=== PATIENT | male | born 1945 | race Caucasian/White ===

== ENCOUNTER 2017-06-17 16:04 | Inpatient (IN) | payer MEDICARE, OTHER ==
[2017-06-17 16:48] LABS: #Basophils 0.1 thou/uL (0.0-0.2); #Lymphocytes 2.9 thou/uL (1.20-3.40); #Monocytes 1.4 thou/uL (0.11-0.59); #Neutrophils 11.5 thou/uL (1.40-6.50); %Basophils 0.4 % (0.0-1.0); %Eosinophils 0.2 % (0.0-10.0); %Lymphocytes 18.3 % (21.0-51.0); %Monocytes 8.8 % (0.0-10.0); Hematocrit 32.9 % (42.0-52.0); Mean Platelet Volume 8.6 fL (7.4-10.4); Red Blood Cell (RBC) Count 3.78 mill/uL (4.70-6.10); White Blood Cell (WBC) Count 15.9 thou/uL (4.8-10.8)
[2017-06-17 17:02] LABS: Anisocytosis SLIGHT = 6-15 cells (100X) (0-5/hpf); Hypochromia SLIGHT = 6-15 cells (100X) (0-5/hpf); Neutrophil 71 % (42-75); Polychromasia SLIGHT = 2-3 cells (100X) (0-2/hpf); Reactive Lymphocytes 7 % (0-10)
[2017-06-17] MEDS ORDERED: Pantoprazole 40 MG VIAL ONE ×2 (18:40→19:33)
[2017-06-17] MEDS ORDERED: Pantoprazole 80 MG, Admixture Fee 1 EACH in Sodium Chloride 0.9% 100 ML IVP SCH (19:00)
[2017-06-17] MEDS ORDERED: Ondansetron ODT 4 MG TAB SL PRN (20:08)
[2017-06-17] MEDS ORDERED: Ondansetron HCl/PF 4 MG/2 ML Vial IVP PRN ×3 (20:08→21:11)
[2017-06-17] MEDS ORDERED: Sodium Chloride 0.9% 1,000 ML IV SCH (20:08)
[2017-06-17] MEDS ORDERED: Lorazepam 2 MG/ML VIAL SLOW IVP PRN (21:11)
[2017-06-17] MEDS ORDERED: Benzonatate 100 MG CAP PO PRN (21:11)
[2017-06-17] MEDS ORDERED: Pantoprazole 80 MG in Sodium Chloride 0.9% 100 ML IVP SCH (21:11)
[2017-06-17] MEDS ORDERED: hydrALAZINE 20 MG/ML VIAL SLOW IVP PRN (21:11)
[2017-06-17] MEDS ORDERED: Calcium Carbonate 500 MG ChewTAB PO PRN (21:11)
[2017-06-17] MEDS ORDERED: Bisacodyl 5 MG TAB PO PRN (21:11)
[2017-06-17] MEDS ORDERED: Nitroglycerin 0.4 MG TAB (25 Tab Bottle) SL PRN (21:11)
[2017-06-17] MEDS ORDERED: Mag-Al 1200 mg/1200 mg/30 ML UDCUP PO PRN (21:11)
[2017-06-17] MEDS ORDERED: Acetaminophen 325 MG TAB PO PRN (21:11)
[2017-06-17] MEDS ORDERED: Senokot 8.6 MG TAB PO PRN (21:11)
[2017-06-17] MEDS ORDERED: Loratadine 10 MG TAB PO PRN (21:11)
[2017-06-17] MEDS ORDERED: traMADol HCl 50 MG TAB PO PRN (21:11)
[2017-06-17] MEDS ORDERED: Diabetic Tussin 200 MG/10 ML UDCUP PO PRN (21:11)
[2017-06-17] MEDS: Sodium Chloride 0.9% 1,000 ML IV SCH (21:21)
[2017-06-17 21:34] LABS: Hematocrit 28.9 % (42.0-52.0)
--- NOTE | 2017-06-18 00:19 | HP ---
DATE OF ADMISSION: 06/17/2017 PRIMARY CARE PHYSICIAN: Tawanna Desai D.O. CHIEF COMPLAINT: Vomiting blood. HISTORY OF PRESENT ILLNESS: Mr. Real is a very pleasant 71-year-old male with past medical histor y of rheumatoid arthritis, tobacco abuse, hypertension, peripheral arterial disease, status post sten ting, and high cholesterol, who presented to the emergency room with the above-mentioned complaint. History is mainly obtained from the patient himself and the case has been discussed with the emergenc y room physician, Dr. Rolle. According to Mr. Real, he has been feeling poorly for the last month or so. Mr. Real reports t hat he has had a bout of diarrhea about 1 month ago. He went to his primary care physician and was d iagnosed with Salmonella for which he received antibiotics. But since then, he has been feeling poor ly. He regularly takes BC powder for the last 60 years for his aches and pains once or twice a day. He is also on Plavix for his peripheral arterial disease. He was also started on steroids a few yea rs ago for his rheumatoid arthritis. He reported that he has been losing weight and has poor appetit e in the last month or so. His diarrhea has somewhat improved; however, last night, he was feeling r eally bad, nauseous and dizzy. He had pain in his chest, which felt like indigestion. He ruled out the night, but this morning, when he got up, he was really dizzy and he sat down as he was afraid he was about to pass out. He then had a significant amount of bright red blood vomiting and was brought to the [facility] by his sister. In the emergency room, his hemoglobin at 12:00 p.m. wa s 11, and a repeat H&H done at 3:00 p.m., his hemoglobin was 9.9. He was hemodynamically stable. He was transferred here for further evaluation. Repeat hemoglobin in our emergency room is 10.3. He i s currently stable and feeling better. He has received proton pump inhibitor IV in the emergency [facility] and is now being admitted for further evaluation. ER physician has discussed the case with the on- call boat loader helper, Dr. Hyatt. The patient will undergo EGD possibly tomorrow. He is to remain n.p.o. for now as per GI instructions. PAST MEDICAL HISTORY: 1. Rheumatoid arthritis. 2. High cholesterol. 3. Hypertension. 4. Remote history of hepatitis 40 years ago. 6. Peripheral arterial disease, status post stent placement in the leg. PAST SURGICAL HISTORY: Stent in the legs. ALLERGIES: No known medication allergies. HOME MEDICATIONS: 1. Sulfasalazine. 2. Omeprazole. 3. Ferrous sulfate. 4. Tramadol as needed. 5. Prednisone 5 mg daily. 6. Duloxetine. 7. Atorvastatin. 8. Plavix 75 mg daily. 9. Risedronate 35 mg once a week. All these medication dosages further need to be confirmed. SOCIAL HISTORY: [place] He smokes 1-1/2 pack of cigarettes per day. Denies any alcohol or drug abuse. FAMILY HISTORY: He denies any coronary artery disease or stroke running in his family. Both of his parents lived to be in their 90s. No history of diabetes, hypertension or cancer in his family. REVIEW OF SYSTEMS: The following complete review of systems was negative except for those mentioned in the history and physical. Constitutional: Weight loss or gain, ability to conduct usual activities. Skin: Rash, itching. Eyes: Double vision, pain. ENT/Mouth: Nose bleeding, neck stiffness, pain, tenderness. Cardiovascular: Palpitations, dyspnea on exertion, orthopnea. Respiratory: Shortness of breath, wheezing, cough, hemoptysis, fever or night sweats. Gastrointestinal: Poor appetite, abdominal pain, heartburn, nausea, vomiting, constipation, or diarr hea. Genitourinary: Urgency, frequency, dysuria, nocturia. Musculoskeletal: Pain, swelling. Neurologic/Psychiatric: Anxiety, depression. Allergy/Immunologic: Skin rash, bleeding tendency. LABORATORY DATA: His reported serum chemistries are unremarkable from [facility]. His CBC rep eated here shows WBCs at 15.9 with normal neutrophil count at 71%, hemoglobin is 10.3, platelet count of 330. A 12-lead EKG by my review shows sinus tachycardia with complete right bundle branch block. PHYSICAL EXAMINATION: VITAL SIGNS: Upon presentation, blood pressure 132/80, pulse of 91, saturating 96% on room air, resp irations 18, temperature 99.5. GENERAL EXAMINATION: In no acute distress, awake, alert, oriented x3. He appears malnourished and c achectic. HEENT EXAMINATION: Mucous membrane is slightly dry. No oropharyngeal exudate or erythema. Head is normocephalic, atraumatic. Pupils equal, reactive to light and accommodation. Extraocular movement intact. NECK: Supple without any lymphadenopathy, JVD or bruit. CHEST: Clear to auscultation without any wheezing, rales or rhonchi. CARDIOVASCULAR: Rate and rhythm is regular without any murmur, rubs or gallops. ABDOMEN: Soft, nontender, and nondistended with positive bowel sounds. He does not have any guardin g, rebound or rigidity. EXTREMITIES: Free of any cyanosis, clubbing, or edema. NEUROLOGICAL EXAMINATION: Nonfocal. SKIN: Free of any rashes or bruises. Feels warm and dry to touch. PSYCHIATRIC: Normal affect. IMPRESSION AND PLAN: 1. Upper gastrointestinal bleed. This is likely secondary to the use of multiple antiplatelet medic ations including the BC powder as well as Plavix and steroids for chronic use. At this time, he will be kept n.p.o., and we will start him on Protonix drip. He will be gently rehydrated and we will ch tobin H&H every . 2. Acute blood loss anemia. We will monitor his H&H closely and avoid any pharmacological deep veno us thrombosis prophylaxis. Hold all NSAIDs at this time. Hold oral steroids. He will be n.p.o. as above. 3. History of hypertension. We will use p.r.n. antihypertensives and hold his home medications for now. 4. History of rheumatoid arthritis. The patient has been instructed to get off the BC powder. 5. History of hepatitis, unknown status. We will send chronic hepatitis panel. 6. Tobacco abuse. We will provide him with a nicotine patch while he is here. 7. Gastrointestinal prophylaxis and deep venous thrombosis prophylaxis as above. 8. Code status: FULL CODE. Discussed with the patient. DISPOSITION: The patient is currently being admitted for active GI bleed. Estimated length of stay is at least 2-3 midnights.
[2017-06-18 01:34] LABS: Hematocrit 26.8 % (42.0-52.0)
[2017-06-18 05:41] LABS: Hematocrit 28.2 % (42.0-52.0); Neutrophil 67 % (42-75); Reactive Lymphocytes 3 % (0-10); Red Blood Cell (RBC) Count 3.22 mill/uL (4.70-6.10); White Blood Cell (WBC) Count 11.5 thou/uL (4.8-10.8)
[2017-06-18 05:52] LABS: Anion Gap 11 mmol/L (10-20); BUN (Urea Nitrogen) 43 mg/dL (8.4-25.7); Calc. Creatinine Clearance 73 mL/min (70-130); Calcium 8.2 mg/dL (7.8-10.44); Carbon Dioxide 21 mmol/L (23-31); Chloride 115 mmol/L (98-107); Estimated GFR-MDRD Greater than 90
--- NOTE | 2017-06-18 08:47 | PDOC.PN ---
- Subjective Encounter Start Date: 06/18/17 Encounter Start Time: 08:45 Subjective: seen post EGD. feels better. no more hemetemesis. -: no BRB -[place]/melena/AP - Objective MAR Reviewed: Yes Vital Signs & Weight: Vital Signs (12 hours) Temp Pulse Resp BP Pulse Ox 06/18/17 08:05 99.1 F 86 18 107/63 94 L 06/18/17 03:59 98.7 F 76 20 132/66 97 06/18/17 00:00 98.3 F 90 20 126/61 98 06/17/17 21:11 98.3 F 90 20 119/64 98 Weight Weight 137 lb 14.4 oz Result Diagrams: 06/18/17 04:02 06/18/17 04:02 Additional Labs: Laboratory Tests 06/17/17 06/17/17 06/18/17 16:37 21:23 01:18 WBC 15.9 H Hgb 10.3 L 9.2 L 8.6 L 06/18/17 04:02 WBC 11.5 H Hgb 8.9 L Radiology Reviewed by me: Yes Phys Exam - Physical Examination Constitutional: NAD malnourished appearing HEENT: PERRLA, moist MMs, sclera anicteric, oral pharynx no lesions Neck: no nodes, no JVD, supple, full ROM Respiratory: no wheezing, no rales, no rhonchi, clear to auscultation bilateral Cardiovascular: RRR, no significant murmur Gastrointestinal: soft, non-tender, no distention, positive bowel sounds Musculoskeletal: no edema, pulses present Neurological: non-focal, normal sensation, moves all 4 limbs Psychiatric: normal affect, A&O x 3 Skin: no rash Dx/Plan (1) Upper GI bleed Code(s): K92.2 - GASTROINTESTINAL HEMORRHAGE, UNSPECIFIED Status: Acute (2) Acute blood loss anemia Code(s): D62 - ACUTE POSTHEMORRHAGIC ANEMIA Status: Acute (3) Rheumatoid arthritis Code(s): M06.9 - RHEUMATOID ARTHRITIS, UNSPECIFIED Status: Acute (4) PAD (peripheral artery disease) Code(s): I73.9 - PERIPHERAL VASCULAR DISEASE, UNSPECIFIED Status: Acute (5) Essential (primary) hypertension Code(s): I10 - ESSENTIAL (PRIMARY) HYPERTENSION Status: Acute (6) Tobacco abuse Code(s): Z72.0 - TOBACCO USE Status: Acute (7) Malnourished Code(s): E46 - UNSPECIFIED PROTEIN-CALORIE MALNUTRITION Status: Chronic Qualifiers: Malnutrition type: protein-calorie malnutrition Protein-calorie malnutrition severity: severe Qualified Code(s): E43 - Unspecified severe protein-calorie malnutrition - Plan plan discussed w/ family, out of bed/ambulate, DVT proph w/SCDs EGD showed erosive gastritis & shallow ulcers.cont PPI BID -: BRIGITTE BC Pwd,Prednisone,risedronate. -: humberto BRIGGS home in am, if feels better. -: nicotine patch. -: care discussed w sister.Will Add PT/Ot for possible HH * . Review of Systems - Review of Systems Constitutional: Weakness, Malaise. negative: Fever, Chills, Sweats, Other Respiratory: negative: Cough, Dry, Shortness of Breath, Hemoptysis, SOB with Excertion, Pleuritic Pain, Sputum, Wheezing Cardiovascular: negative: Chest Pain, Palpitations, Orthopnea, Paroxysmal Noc. Dyspnea, Edema, Light Headedness, Other Gastrointestinal: negative: Nausea, Vomiting, Abdominal Pain, Diarrhea, Constipation, Melena, Hematochezia, Other Genitourinary: negative: Dysuria, Frequency, Incontinence, Hematuria, Retention , Other Musculoskeletal: negative: Neck Pain, Shoulder Pain, Arm Pain, Back Pain, Hand Pain, Leg Pain, Foot Pain, Other Neurological: negative: Weakness, Numbness, Incoordination, Change in Speech, Confusion, Seizures, Other - Medications/Allergies Allergies/Adverse Reactions: Allergies Allergy/AdvReac Type Severity Reaction Status Date / Time No Known Drug Allergies Allergy Verified 06/18/17 01:10 Medications: Current Medications Acetaminophen (Tylenol) 650 mg PO Q4H PRN PRN Reason: Headache/Fever or Pain Al Hydroxide/Mg Hydroxide (Maalox) 30 ml PO Q6H PRN PRN Reason: Heartburn or Indigestion Albuterol/Ipratropium (Duoneb) 3 ml NEB Q6H PRN PRN Reason: SOB &/or Wheezing Benzonatate (Tessalon) 100 mg PO Q4H PRN PRN Reason: Cough Bisacodyl (Dulcolax) 10 mg PO DAILYPRN PRN PRN Reason: Constipation Calcium Carbonate (Tums) 1,000 mg PO Q4H PRN PRN Reason: Heartburn or Indigestion Guaifenesin (Robitussin Sf) 200 mg PO Q4H PRN PRN Reason: Cough Hydralazine HCl (Apresoline) 10 mg SLOW IVP Q4H PRN PRN Reason: Systolic BP > 170 Sodium Chloride (Normal Saline 0.9%) 1,000 mls @ 50 mls/hr IV .Q20H [facility] Last Admin: 06/17/17 21:21 Dose: 1,000 mls Pantoprazole Sodium 80 mg/ (Sodium Chloride) 100 mls @ 10 mls/hr IVP INF [facility] Last Admin: 06/18/17 03:49 Dose: 100 mls Influenza Virus Vaccine (Fluzone High-Dose Syr) 0.5 ml IM .ONCE ONE Stop: 06/18/17 09:01 Loratadine (Claritin) 10 mg PO DAILYPRN PRN PRN Reason: Sinus Symptoms Lorazepam (Ativan) 1 mg SLOW IVP Q4H PRN PRN Reason: Anxiety/Agitation Nitroglycerin (Nitrostat) 0.4 mg SL Q5MIN PRN PRN Reason: Chest Pain Ondansetron HCl (Zofran) 4 mg IVP Q6H PRN PRN Reason: Nausea/Vomiting Senna (Senokot) 2 tab PO HSPRN PRN PRN Reason: Constipation Tramadol HCl (Ultram) 50 mg PO Q4H PRN PRN Reason: Moderate Pain (4-6)
--- NOTE | 2017-06-18 08:48 | CON ---
DATE OF CONSULTATION: 06/18/2017 REASON FOR CONSULTATION: Hematemesis. HISTORY OF PRESENT ILLNESS: Maxim Real is a very pleasant 71-year-old man with rheumatoid arthri tis and peripheral vascular disease with a stent placed to the lower extremity about 3 years ago. He has been on aspirin and Plavix. He takes BC powder most every day for a long time and was recently started on prednisone 5 mg daily, all for his rheumatoid arthritis. Note, he also takes risedronate. He says for about the past month he has been feeling overall poorly just with generalized loss of a ppetite and a bit of weight loss. He has had some looser stools as well. Over the past couple of da ys he has been feeling very dizzy and then yesterday he had a presyncopal episode associated with bur jan discomfort in the mid chest. When he woke up from that he had a single episode of bright red bl ood emesis. This was about a pint in his estimation. This was alarming to him and prompted his pres entation in the ER, initial hemoglobin was 11, but it dropped to 9.9 and this morning dropped further to 8.9. There has been no further hematemesis and no melena or hematochezia. His discomfort and hi s dizziness has significantly improved. He was put on a Protonix drip. He has no history of liver d isease. He has no history of gastrointestinal illness. He has never undergone endoscopy. He has re mained hemodynamically stable. REVIEW OF SYSTEMS: Full review of systems including constitutional, head, eyes, ears, nose, throat, GI, , cardiovascular, respiratory, musculoskeletal, and neurologic systems is negative except as no uziel in HPI. PAST MEDICAL HISTORY: Tobacco abuse, rheumatoid arthritis, hypertension, hyperlipidemia, peripheral arterial disease with stent to the lower extremity about 3 years ago. ALLERGIES: No known drug allergies. OUTPATIENT MEDICATIONS: Aspirin, Plavix, BC powder, omeprazole, sulfasalazine, prednisone, duloxetin e, Lipitor, risedronate. FAMILY HISTORY: Negative for malignancy. SOCIAL HISTORY: He smokes about 1.5 packs of cigarettes per day. No alcohol or drug use. PHYSICAL EXAMINATION: VITAL SIGNS: Temperature 98.7, pulse 76, blood pressure 132/66, 97% oxygen saturation on room air. GENERAL: Elderly 71-year-old man lying in bed comfortably in no distress. SKIN: No jaundice, no rash visible or palpable. He has an abrasion to his left arm. EYES: No scleral icterus. Extraocular movements intact. ENT: Mucous membranes moist, no oral lesions. LYMPH: No submandibular, supraclavicular lymphadenopathy. THYROID: Nontender to palpation. HEART: Regular rate and rhythm. LUNGS: Clear to auscultation bilaterally. ABDOMEN: Bowel sounds present, soft, nontender to palpation throughout. EXTREMITIES: No peripheral edema. VESSELS: Radial pulses 2+ bilaterally. NEUROLOGICAL: Cranial nerves II-XII intact bilaterally. No focal deficits. LABORATORY STUDIES: WBC 11.5, hemoglobin down to 8.9 from 11.0 on admission, platelets 256. Sodium 144, potassium 3.3, BUN elevated at 43, creatinine 0.81. ASSESSMENT AND PLAN: 1. Hematemesis, single episode yesterday. 2. Acute blood loss anemia. 3. Rheumatoid arthritis, taking BC powder chronically and recently started on prednisone. The patient's presentation is consistent with acute upper gastrointestinal bleeding. This does seem to be stable given his hemodynamic stability and no recurrence of hematemesis. Continue with Protoni x drip. We will plan for EGD later today for further investigation. Further recommendations followi ng endoscopy.
[2017-06-18] MEDS ORDERED: FLU VACC TS2017-18 (>65YR) 0.5 ML SYRINGE IM ONE (09:00)
[2017-06-18] MEDS: Nicotine 14 MG PATCH TD SCH (09:13)
[2017-06-18] MEDS ORDERED: Promethazine HCl 25 MG/ML VIAL IM PRN (12:05)
[2017-06-18] MEDS ORDERED: Ondansetron HCl/PF 4 MG/2 ML Vial IVP PRN (12:05)
[2017-06-18] MEDS ORDERED: Promethazine HCl 25 MG/ML VIAL SLOW IVP PRN (12:05)
[2017-06-18] MEDS ORDERED: Fentanyl 100 MCG/2 ML VIAL ONE (12:22)
--- NOTE | 2017-06-18 12:25 | OP ---
DATE OF PROCEDURE: 06/18/2017 SURGEON: Jose Hyatt M.D. ADVERTISING TRAFFIC MANAGER SURGEON: None. PROCEDURE: Esophagogastroduodenoscopy. INDICATION: Hematemesis and acute blood loss anemia. MEDICATIONS: See anesthesia record. FINDINGS: After discussion of the risks, benefits and alternatives of the procedure, informed consen t was obtained and witnessed. Pre-endoscopic cardiopulmonary examination was satisfactory. Timeout was performed before sedation was achieved. Sedation was achieved with anesthesia assistance in the endoscopy unit. A Pentax adult upper endoscope was placed into the oropharynx and passed through the cricopharyngeus under direct visualization. The proximal and mid esophageal mucosa appeared normal. In the distal esophagus from 35 cm to 41 cm there was salmon-colored mucosa consistent with probabl e Aguilar's esophagus. There is some friability to this area and there is also a single shallow rich n based small ulceration in the distal esophagus. This could be consistent with pill esophagitis. T he ulcer is nonbleeding and not very deep. The endoscope was advanced forward into the stomach. For champagne and retroflexed views of the entire gastric mucosa were obtained. The gastric mucosa overall ap peared normal. No erosions or ulcerations. However, there were a few tiny arteriovenous malformatio ns in the gastric body and gastric antrum. These are nonbleeding. No therapy was applied. The endo scope was advanced through the pylorus and into the first and second portions of the duodenum. At th e apex of the duodenal bulb, there is shallow, but near circumferential ulceration with some associat ed low grade stricture. There is no bleeding from this area. It was friable and there was some oozi ng induced with endoscope passage beyond this area; however, there were no high risk stigmata for sig nificant rebleeding from this area. No biopsies were obtained on this examination. The upper endosc ope was completely withdrawn and the patient allowed to recover. The patient tolerated the procedure well. There were no immediate post-procedure complications. IMPRESSION: 1. Distal erosive esophagitis with a single shallow ulcer in the distal esophagus, possibly consiste nt with pill esophagitis. 2. Wells-colored mucosa in the distal esophagus from 35-41 cm. 3. A few tiny nonbleeding gastric arteriovenous malformations. 4. Shallow, but near circumferential ulcer at the apex of the duodenal bulb, with associated low gra de stricture, nonbleeding. 5. No old blood or active bleeding on this examination. RECOMMENDATIONS: 1. Advance diet. 2. Twice daily oral proton pump inhibitor for at least the next 2 months. 3. I would recommend that the patient stop prednisone, stop the risedronate (due to risk of pill eso phagitis with this medication in particular), stop his BC powder and all other nonsteroidal anti-infl ammatory drugs. 4. Check H. pylori serology. If positive, treat with triple therapy and confirm eradication. 5. I would also recommend holding Plavix for now, if this is okay from a vascular perspective. If t he Plavix is necessary, then go ahead and administer, with more close outpatient lab monitoring. 6. We will have him follow up in the GI Clinic in 3-4 weeks. At that point, we will likely schedule repeat EGD several weeks down the line to assess for healing. Please call back if needed.
[2017-06-18] MEDS ORDERED: Succinylcholine Chloride 20 MG/ML 10 ml SYRINGE FS ONE (14:04)
[2017-06-18] MEDS ORDERED: Esmolol 100 MG/10 ML VIAL ONE (14:04)
[2017-06-18] MEDS ORDERED: Lidocaine 1% PF 5 ML VIAL ONE (14:04)
[2017-06-18] MEDS ORDERED: Propofol 200 MG/20 ML VIAL ONE (14:04)
[2017-06-18 15:20] LABS: Bilirubin Negative (Negative); Blood, Urine Negative (Negative); Glucose, Urine (Dipstick) Negative (Negative); Ketone, Urine 15 mg/dL (Negative); Nitrite Negative (Negative); Protein, Urine (Dipstick) Negative (Neg-Trace); Urobilinogen 0.2 mg/dL (0.2-1.0)
[2017-06-18] MEDS: Sodium Chloride 0.9% 1,000 ML IV SCH (18:47)
[2017-06-19 06:20] LABS: Anion Gap 7 mmol/L (10-20); BUN (Urea Nitrogen) 26 mg/dL (8.4-25.7); Calc. Creatinine Clearance 77 mL/min (70-130); Calcium 8.1 mg/dL (7.8-10.44); Carbon Dioxide 23 mmol/L (23-31); Chloride 114 mmol/L (98-107); Estimated GFR-MDRD Greater than 90
[2017-06-19 06:26] LABS: #Basophils 0.1 thou/uL (0.0-0.2); #Eosinphils 0.2 thou/uL (0.0-0.7); #Lymphocytes 2.3 thou/uL (1.20-3.40); #Monocytes 1.3 thou/uL (0.11-0.59); %Basophils 0.6 % (0.0-1.0); %Eosinophils 1.4 % (0.0-10.0); %Lymphocytes 21.2 % (21.0-51.0); %Monocytes 11.8 % (0.0-10.0); Hematocrit 26.2 % (42.0-52.0); Hypochromia SLIGHT = 6-15 cells (100X) (0-5/hpf); Red Blood Cell (RBC) Count 2.97 mill/uL (4.70-6.10); White Blood Cell (WBC) Count 10.8 thou/uL (4.8-10.8)
[2017-06-19] MEDS ORDERED: Potassium Chloride 40 MEQ in Premix Bag 1 BAG IVPB SCH (07:15)
[2017-06-19] MEDS ORDERED: Potassium Chloride 40 MEQ, Admixture Fee 1 EACH in Sodium Chloride 0.9% 250 ML 250 ML IVPB SCH (07:30)
[2017-06-19] MEDS ORDERED: Potassium Chloride 20 MEQ TAB PO SCH (08:00)
[2017-06-19] MEDS: Nicotine 14 MG PATCH TD SCH (08:39)
[2017-06-19] MEDS ORDERED: Ferrous Sulfate 325 MG TAB PO PRN (09:00)
--- NOTE | 2017-06-19 09:47 | PDOC.PN ---
- Subjective Encounter Start Date: 06/19/17 Encounter Start Time: 09:45 Subjective: no new complaints. no overnight events. -: reports that he ate all of his breakfast this morning. -: no nausea/vomiting.passing black colored liquid stools - Objective MAR Reviewed: Yes Vital Signs & Weight: Vital Signs (12 hours) Temp Pulse Resp BP Pulse Ox 06/19/17 07:49 98.6 F 70 18 116/62 96 06/19/17 05:08 99.3 F 84 20 100/55 L 97 06/19/17 00:00 98.4 F 71 20 127/60 97 Weight Weight 135 lb 12.8 oz I&O: 06/18/17 06/19/17 06/20/17 06:59 06:59 06:59 Intake Total 1700 Output Total 1300 Balance 400 Result Diagrams: 06/19/17 04:56 06/19/17 04:56 Additional Labs: Microbiology 06/18/17 17:47 Stool - Liquid C. difficile GDH Antigen & Toxins - Final Laboratory Tests 06/17/17 06/17/17 06/18/17 16:37 21:23 01:18 Hgb 10.3 L 9.2 L 8.6 L 06/18/17 06/19/17 04:02 04:56 Hgb 8.9 L 8.2 L Phys Exam - Physical Examination Constitutional: NAD cachectic HEENT: PERRLA, moist MMs, sclera anicteric, oral pharynx no lesions Neck: no nodes, no JVD, supple, full ROM Respiratory: no wheezing, no rales, no rhonchi, clear to auscultation bilateral Cardiovascular: RRR, no significant murmur Gastrointestinal: soft, non-tender, no distention, positive bowel sounds Musculoskeletal: no edema, pulses present Neurological: non-focal, normal sensation, moves all 4 limbs Psychiatric: normal affect, A&O x 3 Skin: no rash Dx/Plan (1) Upper GI bleed Code(s): K92.2 - GASTROINTESTINAL HEMORRHAGE, UNSPECIFIED Status: Acute (2) Acute blood loss anemia Code(s): D62 - ACUTE POSTHEMORRHAGIC ANEMIA Status: Acute (3) Rheumatoid arthritis Code(s): M06.9 - RHEUMATOID ARTHRITIS, UNSPECIFIED Status: Acute (4) PAD (peripheral artery disease) Code(s): I73.9 - PERIPHERAL VASCULAR DISEASE, UNSPECIFIED Status: Acute (5) Essential (primary) hypertension Code(s): I10 - ESSENTIAL (PRIMARY) HYPERTENSION Status: Acute (6) Tobacco abuse Code(s): Z72.0 - TOBACCO USE Status: Acute (7) Malnourished Code(s): E46 - UNSPECIFIED PROTEIN-CALORIE MALNUTRITION Status: Chronic Qualifiers: Malnutrition type: protein-calorie malnutrition Protein-calorie malnutrition severity: severe Qualified Code(s): E43 - Unspecified severe protein-calorie malnutrition (8) Hypokalemia Code(s): E87.6 - HYPOKALEMIA Status: Acute - Plan DVT proph w/SCDs replace potassium.add pedialyte as no IV access. -: H/h stable. no active bleed.melana demonstrates old blood. -: C.diff is negative. -: awaiting PT/OT eval & HH set up.DC home when done -: hemodynamically stable * . Review of Systems - Review of Systems Constitutional: Malaise. negative: Fever, Chills, Sweats, Weakness, Other ENT: negative: Ear Pain, Ear Discharge, Nose Pain, Nose Discharge, Nose Congestion, Mouth Pain, Mouth Swelling, Throat Pain, Throat Swelling, Other Respiratory: negative: Cough, Dry, Shortness of Breath, Hemoptysis, SOB with Excertion, Pleuritic Pain, Sputum, Wheezing Cardiovascular: negative: Chest Pain, Palpitations, Orthopnea, Paroxysmal Noc. Dyspnea, Edema, Light Headedness, Other Gastrointestinal: Diarrhea. negative: Nausea, Vomiting, Abdominal Pain, Constipation, Melena, Hematochezia, Other Genitourinary: negative: Dysuria, Frequency, Incontinence, Hematuria, Retention , Other Musculoskeletal: negative: Neck Pain, Shoulder Pain, Arm Pain, Back Pain, Hand Pain, Leg Pain, Foot Pain, Other Neurological: negative: Weakness, Numbness, Incoordination, Change in Speech, Confusion, Seizures, Other - Medications/Allergies Allergies/Adverse Reactions: Allergies Allergy/AdvReac Type Severity Reaction Status Date / Time No Known Drug Allergies Allergy Verified 06/18/17 01:10 Medications: Current Medications Acetaminophen (Tylenol) 650 mg PO Q4H PRN PRN Reason: Headache/Fever or Pain Al Hydroxide/Mg Hydroxide (Maalox) 30 ml PO Q6H PRN PRN Reason: Heartburn or Indigestion Albuterol/Ipratropium (Duoneb) 3 ml NEB Q6H PRN PRN Reason: SOB &/or Wheezing Benzonatate (Tessalon) 100 mg PO Q4H PRN PRN Reason: Cough Bisacodyl (Dulcolax) 10 mg PO DAILYPRN PRN PRN Reason: Constipation Calcium Carbonate (Tums) 1,000 mg PO Q4H PRN PRN Reason: Heartburn or Indigestion Duloxetine HCl (Cymbalta) 60 mg PO DAILY [facility] Last Admin: 06/19/17 08:34 Dose: 60 mg Ferrous Sulfate (Feosol) 325 mg PO DAILY PRN PRN Reason: Acne Guaifenesin (Robitussin Sf) 200 mg PO Q4H PRN PRN Reason: Cough Hydralazine HCl (Apresoline) 10 mg SLOW IVP Q4H PRN PRN Reason: Systolic BP > 170 Loratadine (Claritin) 10 mg PO DAILYPRN PRN PRN Reason: Sinus Symptoms Lorazepam (Ativan) 1 mg SLOW IVP Q4H PRN PRN Reason: Anxiety/Agitation Nicotine (Nicoderm Patch) 14 mg TD DAILY [facility] Last Admin: 06/19/17 08:39 Dose: 14 mg Nitroglycerin (Nitrostat) 0.4 mg SL Q5MIN PRN PRN Reason: Chest Pain Ondansetron HCl (Zofran) 4 mg IVP Q6H PRN PRN Reason: Nausea/Vomiting Pantoprazole Sodium (Protonix) 40 mg PO BID [facility] Last Admin: 06/19/17 08:35 Dose: 40 mg Senna (Senokot) 2 tab PO HSPRN PRN PRN Reason: Constipation Sodium Chloride (Flush - Normal Saline) 10 ml IVF Q12HR [facility] Last Admin: 06/19/17 08:35 Dose: Not Given Sodium Chloride (Flush - Normal Saline) 10 ml IVF PRN PRN PRN Reason: Saline Flush Tramadol HCl (Ultram) 50 mg PO Q4H PRN PRN Reason: Moderate Pain (4-6)
[2017-06-19 13:31] VITALS: BMI 19.5
[2017-06-19 14:30] VITALS: BP 120/60; TEMP 98
--- NOTE | 2017-06-19 18:56 | DIS ---
DATE OF ADMISSION: 06/17/2017 DATE OF DISCHARGE: 06/19/2017 CONDITION AT THE TIME OF DISCHARGE: Stable and improved. DISCHARGE DIAGNOSES: 1. Upper gastrointestinal bleed. 2. Acute blood loss anemia. 3. Distal erosive esophagitis with peptic ulcers in the distal esophagus, possibly consistent with P ill esophagitis. He also was found to have a duodenal bulb circumferential ulcer at the apex. 4. History of rheumatoid arthritis. 5. History of peripheral arterial disease status post stenting. 6. Hypertension. 7. Tobacco abuse. 8. Malnourishment. DISCHARGE MEDICATIONS: Sulfadiazine 500 mg p.o. b.i.d., omeprazole 20 mg p.o. b.i.d., ferrous sulfat e 325 mg daily, tramadol as needed, Cymbalta 60 mg daily, atorvastatin 20 mg daily, and nicotine patc h 14 mg daily. He is instructed to stop his prednisone, his risedronate and his Plavix for now. PRIMARY CARE PHYSICIAN: Now the patient wants to get a new primary care physician at [facility]. DISCHARGE FOLLOWUP: With Gastroenterology, Dr. Jose Hyatt and Cardiology, Dr. Perera. PROCEDURES DONE IN THE HOSPITAL: Include EGD on 06/18/2017, which showed distal erosive esophagitis with a single shallow ulcer in the distal esophagus, possibly consistent with Pill esophagitis as wel l as a tiny nonbleeding gastric AV malformations. He was also found to have a shallow ulcer in the d uodenal bulb without any active bleed. CONSULTATIONS: Gastroenterology, Dr. Jose Hyatt. HISTORY OF PRESENTING ILLNESS: Mr. Real is a pleasant 71-year-old male with history of rheumatoid arthritis, hypertension, peripheral arterial disease who presented to the ER with complain ts of vomiting blood. The patient was noted to be taking BC powder along with the Plavix and risedro jessie and steroids on a regular basis. Upon presentation, he was hemodynamically stable and his hemog lobin was 9.9. He was admitted for further evaluation and started on proton pump inhibitor by REJI wen in the beginning. Please see admission history and physical dictated by myself for further details . HOSPITAL COURSE: The patient did not have any episodes of hematemesis or melena initially in the [facility]. His H and H remained stable with lowest hemoglobin at 8.2. He did not need any blood transfu sions. Gastroenterology was consulted and Dr. Hyatt saw the patient. He was taken to endoscopy with the findings as mentioned above. GI instructed him to stop the steroids, risedronate and Plavix for now. He is instructed to stay off of his BC powder. His C. difficile was checked and was negative. The patient started to have some diarrheal stools whi ch were black in nature, which is likely hold the blood that was passing through. He did not have an y changes in his H and H or his hemodynamics. He was seen and examined on the day of discharge and hemodynamically stable. He was evaluated by the physical therapist, but he was able to walk in the hallways without any help, so physical therapy fo r home was not recommended. His sister was here to come pick him up and he is going to stay with her for a few days. I have discussed the discharge plan with the patient and his sister multiple times. He is instructed to follow up with his director product safety or find a new director product safety as he is not hap py with the one he has now. He is also instructed to follow up with Cardiology with regards to his l olimpia-term use of Plavix. He is instructed to stop the BC powder, the steroids, the risedronate, and P lavix until seen by the specialists. He is started on proton pump inhibitor twice a day. All prescr iptions were provided. The patient was seen and examined prior to discharge. Please see hospitalist progress note from john garcía's date for further details. Total time spent in the discharge 32 minutes.
[2017-06-22 10:21] LABS: H. pylori IgA ABS Less than 9.0 units (0.0-8.9); H. pylori IgG ABS Less than 0.9 U/mL (0.0-0.8); H. pylori IgM ABS Less than 9.0 units (0.0-8.9)
--- NOTE | 2017-06-23 12:19 | PQF ---
NATY UMANZOR MARTÍNEZ REYES [id number] CLINICAL DOCUMENTATION CLARIFICATION FORM: POST DISCHARGE Addendum to original discharge summary date: ____ Late entry note date: __ DATE: 06/17/2017 ATTN: Martínez Reyes MD Please exercise your independent, professional judgment in responding to the clarification form. Clinical indicators are provided on the bottom of this form for your review Op Note 07/18/17 pg. 1 Indication: Hematemesis.... Impression: #1 Distal erosive esophagitis..... #3. A few tiny nonbleeding gastric ateriovenous malformations Please check appropriate box(s): Hematemesis/GI Bleed related to [ x ] Distal erosive esophagitis Option 1 [ ] Gastric ateriovenous malformations Option 2 [ ] Other diagnosis [ ] Unable to determine In addition, please specify: Present on Admission (POA): [ ] Yes [ ] No [ ] Unable to determine For continuity of documentation, please document condition throughout progress notes and discharge summary. Thank You. CLINICAL INDICATORS - SIGNS / SYMPTOMS / LABS RISK FACTORS: Acute Blood Loss Anemia TREATMENTS: EGD (This form is maintained as a part of the permanent medical record) 2014 [employer]. All Rights Reserved [email or web address] [email or web address] [phone] HEMAL
== END 2017-06-19 14:34 | disposition home or self-care (01) | DRG 380 ==
LOC: ERS 16:04 → 2NO 18:00
PROVIDERS: ADMIT Internal Medicine; ATTEND Internal Medicine
PROC: 0DJ08ZZ Inspection of Upper Intestinal Tract, Via Natural or Artificial Opening Endoscopic (ICD-10-PCS; principal; 2017-06-18)
DX: K22.11 Ulcer of esophagus with bleeding (principal); E43 Unspecified severe protein-calorie malnutrition; D62 Acute posthemorrhagic anemia; Z68.1 Body mass index [BMI] 19.9 or less, adult; M06.9 Rheumatoid arthritis, unspecified; K22.10 Ulcer of esophagus without bleeding; I10 Essential (primary) hypertension; F17.210 Nicotine dependence, cigarettes, uncomplicated; I73.9 Peripheral vascular disease, unspecified; K55.20 Angiodysplasia of colon without hemorrhage; T45.525A Adverse effect of antithrombotic drugs, initial encounter
CPT/HCPCS: 36415; 80048; 81003; 85014; 85018; 85025; 87324; 87449; 93005; 96374; 96376; 99406; A4216; C9113; G8978-GP-CH; G8979-GP-CH; G8980-GP-CH; J2001; J2704; J3010; J3480; J7050

== ENCOUNTER 2017-06-24 17:22 | Inpatient (IN) | payer MEDICARE, OTHER ==
[~2017-06-24 17:22] MED LIST: ISOVUE-370 76%-LOCM 1 ML ONE
[2017-06-24 18:22] LABS: #Basophils 0.1 thou/uL (0.0-0.2); #Lymphocytes 2.4 thou/uL (1.20-3.40); #Monocytes 1.6 thou/uL (0.11-0.59); #Neutrophils 11.1 thou/uL (1.40-6.50); %Basophils 0.4 % (0.0-1.0); %Eosinophils 0.1 % (0.0-10.0); %Lymphocytes 15.7 % (21.0-51.0); %Monocytes 10.4 % (0.0-10.0); Hematocrit 26.9 % (42.0-52.0); Mean Platelet Volume 8.1 fL (7.4-10.4); White Blood Cell (WBC) Count 15.1 thou/uL (4.8-10.8)
[2017-06-24] MEDS ORDERED: Ondansetron HCl/PF 4 MG/2 ML Vial ONE ×2 (18:38→19:18)
[2017-06-24] MEDS ORDERED: Morphine 4 MG/ML VIAL ONE (18:38)
[2017-06-24 18:44] LABS: Anisocytosis MODERATE=16-30 cells (100X) (0-5/hpf); Ovalocytes SLIGHT = 2-5 cells (100X) (0-1/hpf); Polychromasia MODERATE = 3-4 cells (100X) (0-2/hpf); Schistocytes SLIGHT = 2-5 cells (100X) (0-1/hpf); Target Cells SLIGHT = 2-5 cells (100X) (0-1/hpf)
[2017-06-24 18:48] LABS: ALT (SGPT) 12 U/L (8-55); AST (SGOT) 14 U/L (5-34); Alkaline Phosphatase 71 U/L (40-150); Anion Gap 15 mmol/L (10-20); BUN (Urea Nitrogen) 16 mg/dL (8.4-25.7); Bilirubin, Total 0.3 mg/dL (0.2-1.2); Calc. Creatinine Clearance 0 mL/min (70-130); Calcium 8.9 mg/dL (7.8-10.44); Carbon Dioxide 25 mmol/L (23-31); Chloride 102 mmol/L (98-107); Estimated GFR-MDRD Greater than 90; Globulin 2.5 g/dL (2.4-3.5); Lipase 25 U/L (8-78); Protein, Total 5.9 g/dL (5.8-8.1)
[2017-06-24 18:59] LABS: Troponin I 0.012 ng/mL (< 0.028)
[2017-06-24] MEDS ORDERED: Pantoprazole 40 MG VIAL ONE (19:15)
[2017-06-24] MEDS ORDERED: Famotidine/PF 20 mg/2ml Vial ONE (19:15)
[2017-06-24] MEDS ORDERED: HYDROmorphone 0.5 MG/0.5 ML SYRINGE ONE ×2 (19:16→21:01)
--- NOTE | 2017-06-24 19:33 | RAD ---
ABDOMEN TWO VIEW WITH ONE VIEW CHEST RADIOGRAPH: History: Abdominal pain. Comparison: None. FINDINGS: Lungs are hyperinflated. Cardiac silhouette and mediastinal contours appear within normal limits. The re is an aortobiiliac graft in place. Mild dextroscoliosis of the lumbar spine. No dilated loops of l arge or small bowel. On the left lateral decubitus view, there is no free air under the hemidiaphragm. IMPRESSION: 1. Clear lungs. 2. Obstructive pulmonary disease. 3. No dilated loops of bowel. POS: [facility]
--- NOTE | 2017-06-24 21:10 | CT ---
CT ABDOMEN AND PELVIS WITHOUT CONTRAST: History: Abdominal pain. FINDINGS: There are emphysematous changes in the lung bases. No pericardial effusion. There are multiple hypodensities in the liver, those that are greater than 1 measuring fluid attenuat ion. There is an aortobiiliac graft in place. Aneurysmal dilatation of the aorta is present. Superior mesenteric artery and vein are patent. The portal vein is patent. Gallbladder is unremarkable, as we ll as the spleen. There is a hypodensity in the superior pole left kidney measuring less than 1 cm wi th fluid attenuation. Mild thickening of the left adrenal gland without mass. No dilated loops of large or small bowel. Prostate is markedly enlarged. Urinary bladder is moderatel y distended. There is fecalization of the small bowel at the terminal ileum. This ilium measures up to just under 3 cm. There is some flow grade inflammation of the mesentery. There is also fecalized material within the cecum. There is a right sided renal sinus cyst. There are multiple vascular calcifications withi n the arcuate renal arteries. IMPRESSION: 1. Fecalized small bowel at the distal ileum and terminal ileum measuring up 3 cm. This is nonspecifi c and can be seen with ileus, inflammation and infection. Ischemia is felt less likely due to normal distal vascular flow and no clot within the superior mesenteric artery. 2. Marked prostatomegaly with dilatation of the urinary bladder. 3. Very large right sided moderate sized left sided hydrocele. 4. Multiple renal and hepatic cysts. 5. Aortic aneurysm which is excluded via a aortobiiliac graft. No complication. 6. Moderate degenerative disease of the lumbar spine along with peripherally sclerotic lucent foci wi thin the sacrum bilaterally. There is also a peripherally sclerotic area within the L5 vertebra. Non- emergent MRI with and without contrast would be beneficial. Paget's disease is highest within the dif ferential. POS: [facility]
--- NOTE | 2017-06-24 22:50 | PDOC.EVN ---
Event Note - Event Note Event Note: [id number] H&P Dictated 1. Abdominal pain 2. hypokalemia 3. Nausea 4. h/o htn 5. h/o gi BLEED PLAN: SEE ORDERS
[2017-06-24] MEDS ORDERED: Ondansetron HCl/PF 4 MG/2 ML Vial IVP PRN ×2 (23:14→23:54)
[2017-06-24] MEDS ORDERED: Ondansetron ODT 4 MG TAB SL PRN (23:14)
[2017-06-24] MEDS ORDERED: Sodium Chloride 0.9% 1,000 ML IV SCH (23:14)
[2017-06-24] MEDS ORDERED: Ferrous Sulfate 325 MG TAB PO PRN (23:57)
[2017-06-25 00:10] VITALS: BMI 18.2
[2017-06-25] MEDS: traMADol HCl 50 MG TAB PO PRN ×2 (00:25→04:59)
[2017-06-25] MEDS ORDERED: Potassium Chloride 20 MEQ TAB PO SCH (00:45)
[2017-06-25] MEDS ORDERED: Potassium Chloride 40 MEQ in Sodium Chloride 0.9% 250 ML 250 ML IVPB SCH (01:00)
[2017-06-25] MEDS: Acetaminophen 325 MG TAB PO PRN ×2 (04:59→20:55)
[2017-06-25 05:08] LABS: Band 1 % (5-11); Hematocrit 24.7 % (42.0-52.0); Mean Platelet Volume 8.8 fL (7.4-10.4); Neutrophil 82 % (42-75); Red Blood Cell (RBC) Count 2.82 mill/uL (4.70-6.10); White Blood Cell (WBC) Count 12.7 thou/uL (4.8-10.8)
[2017-06-25 05:34] LABS: ALT (SGPT) 11 U/L (8-55); AST (SGOT) 16 U/L (5-34); Alkaline Phosphatase 60 U/L (40-150); Anion Gap 9 mmol/L (10-20); BUN (Urea Nitrogen) 13 mg/dL (8.4-25.7); Bilirubin, Total 0.2 mg/dL (0.2-1.2); Calc. Creatinine Clearance 87 mL/min (70-130); Calcium 8.2 mg/dL (7.8-10.44); Carbon Dioxide 26 mmol/L (23-31); Chloride 108 mmol/L (98-107); Estimated GFR-MDRD Greater than 90; Globulin 2.1 g/dL (2.4-3.5); Protein, Total 5.2 g/dL (5.8-8.1)
--- NOTE | 2017-06-25 06:39 | HP ---
CHIEF COMPLAINT: Abdominal pain. HISTORY OF PRESENT ILLNESS: Patient is 71 years old male with past medical history of hypertension, rheumatoid arthritis, hyperlipidemia, history of hepatitis, GI bleed, recently got discharged from [facility] on 06/19/2017, with a diagnosis of GI bleed and acute blood loss anemia and erosive gastri tis. Patient had an EGD done at that time also. Patient said all of sudden this afternoon started h aving abdominal pain. Abdominal pain is in at the epigastric and upper abdomen, constant pain 10/10, associated with some dry heaves also. Denies any vomiting blood, denies any black stool. Denies an y chest pain, denies any trouble breathing, denies any dizziness. The pain is moderate in intensity, improved with pain medication. Denies any dizziness. Denies any headache. Pain is achy kind of pa in. PAST MEDICAL HISTORY: As per HPI. PAST SURGICAL HISTORY: Stent placement and EGD. SOCIAL HISTORY: Positive for smoking, denies alcohol, denies any drugs. MEDICATIONS: Reviewed. ALLERGIES: No known drug allergies tinnitus. REVIEW OF SYSTEMS: Constitutional: Denies any fever, denies any chills. Eyes: Denies any vision problems. Ears: Den ies any hearing loss. Neck: Denies any neck pain. Cardiovascular System: Denies any chest pain. Respiratory System: Denies any cough, denies any sputum production. Gastrointestinal: Positive for abdominal pain. Cranial Nerve System: Denies syncope, denies lightheadedness. Psychiatric System: Denies anxiety. Integumentary: Denies any rash. All other review of systems are reviewed and are negative. PHYSICAL EXAMINATION: CONSTITUTIONAL/VITAL SIGNS: At the time of H&P performed, blood pressure is 130/100 and afebrile and pulse ox 97%. GENERAL: The patient appears comfortable. HEENT: Pupils equal, round, and reactive. Anterior naris patent. Nose normal. Ears normal. Teeth intact. Tongue is moist. NECK: Supple. No JVD. CARDIOVASCULAR SYSTEM: S1, S2 present. Regular rate and rhythm, no murmurs, no rubs, no gallops. RESPIRATORY SYSTEM: No wheezing, no rhonchi. Breath sounds bilaterally. GASTROINTESTINAL: Epigastric region tender to palpate mild. No guarding, no rebound tenderness, dis tended. MUSCULOSKELETAL: No edema. CRANIAL NERVE SYSTEM: Awake, follows commands. Strength intact, sensory intact. PSYCHIATRIC: Mood appropriate at this time. GENITOURINARY: No suprapubic tenderness. No inguinal tenderness. LABORATORY DATA: At the time of H&P performed sodium 139, potassium 2.5, chloride 102, CO2 of 25, BU N of 16, creatinine 0.80, glucose 160, troponin 0.012. White count is 15.1, hemoglobin 8.7, hemoglob in at the time of discharge was 8.2. Platelet count is 429. ASSESSMENT AND PLAN: The patient is a 71 years old male. 1. Abdominal pain and dry heaves. Plan to start patient on intravenous Protonix p.o. 40 b.i.d. Jayesh n to monitor the patient closely. Plan to consult GI to evaluate the patient. We will follow the christina mcghee. 2. History of hypertension, monitor blood pressures, continue home blood pressure medications. 3. History of hyperlipidemia and hepatitis. Continue home medications. 4. Hypokalemia. Replace potassium. Case was discussed in detail with the patient.
[2017-06-25] MEDS ORDERED: Sodium Chloride 0.9% 1,000 ML IV SCH (07:45)
[2017-06-25] MEDS: NS 0.9% w/ 20 MEQ KCL 1,000 ML IV SCH ×2 (08:22→21:04)
[2017-06-25] MEDS ORDERED: Atorvastatin Calcium 20 MG TAB PO SCH (09:00)
[2017-06-25] MEDS ORDERED: Non-Formulary Item 1 EACH (Omeprazole [Omeprazole] 20 MG) PO SCH (09:00)
[2017-06-25] MEDS ORDERED: Heparin 5,000 UNITS/ML VIAL SC SCH (09:00)
[2017-06-25] MEDS ORDERED: Fleet Enema 133 ML BOT FS SCH (09:30)
[2017-06-25] MEDS ORDERED: GoLYTELY 4,000 ml Bottle PO SCH (12:30)
--- NOTE | 2017-06-25 14:02 | PDOC.PN ---
- Subjective Encounter Start Date: 06/25/17 Encounter Start Time: 08:00 Subjective: has not passed stool or flatus yet -: no abd pain or nausea now - Objective MAR Reviewed: Yes Vital Signs & Weight: Weight Admit Weight 134 lb 7.7 oz Weight 134 lb 7.7 oz Result Diagrams: 06/25/17 03:49 06/25/17 03:49 Phys Exam - Physical Examination HEENT: PERRLA, sclera anicteric dry mucosa Neck: no JVD, supple Respiratory: no wheezing, no rales Cardiovascular: RRR, no significant murmur Gastrointestinal: soft, non-tender, positive bowel sounds no rigidity or guarding Musculoskeletal: no edema, pulses present Neurological: non-focal, moves all 4 limbs Psychiatric: A&O x 3 Dx/Plan (1) Hypokalemia Code(s): E87.6 - HYPOKALEMIA Status: Acute (2) Dehydration Code(s): E86.0 - DEHYDRATION Status: Acute (3) Ileus Code(s): K56.7 - ILEUS, UNSPECIFIED Status: Acute Comment: with constipation /obstipation (4) Essential (primary) hypertension Code(s): I10 - ESSENTIAL (PRIMARY) HYPERTENSION Status: Acute (5) PAD (peripheral artery disease) Code(s): I73.9 - PERIPHERAL VASCULAR DISEASE, UNSPECIFIED Status: Chronic (6) Rheumatoid arthritis Code(s): M06.9 - RHEUMATOID ARTHRITIS, UNSPECIFIED Status: Chronic Qualifiers: Rheumatoid arthritis location: multiple sites Rheumatoid factor presence: unspecified presence Qualified Code(s): M06.9 - Rheumatoid arthritis, unspecified (7) Chronic anemia Code(s): D64.9 - ANEMIA, UNSPECIFIED Status: Chronic - Plan oral potassium replacement, recent GI bleed on 06/19/17 -: fleets enema this am with no stool output -: give 2 liters golytely, abd is benign with no toxic features clinically -: continue iv fluids for 24hrs -: has enlarged prostate, watch for urine output * . change status to inpatient potassium has not changed much overnight watch for signs of sbo with intractable nausea and abd distention/pain etc. To ambulate in hallway as tolerated Review of Systems - Medications/Allergies Allergies/Adverse Reactions: Allergies Allergy/AdvReac Type Severity Reaction Status Date / Time No Known Drug Allergies Allergy Verified 06/18/17 01:10 Medications: Current Medications Acetaminophen (Tylenol) 650 mg PO Q4H PRN PRN Reason: Headache/Fever or Pain Last Admin: 06/25/17 04:59 Dose: 650 mg Atorvastatin Calcium (Lipitor) 20 mg PO DAILY [facility] Last Admin: 06/25/17 08:23 Dose: 20 mg Duloxetine HCl (Cymbalta) 60 mg PO DAILY [facility] Last Admin: 06/25/17 08:22 Dose: 60 mg Ferrous Sulfate (Feosol) 325 mg PO DAILYPRN PRN PRN Reason: Acne Heparin Sodium (Porcine) (Heparin) 5,000 units SC TID [facility] Last Admin: 06/25/17 08:22 Dose: 5,000 units Potassium Chloride/Sodium Chloride (Ns 0.9% W/ 20 Meq Kcl) 1,000 mls @ 100 mls/ hr IV .Q10H [facility] Last Admin: 06/25/17 08:22 Dose: 1,000 mls Ondansetron HCl (Zofran) 4 mg IVP Q6H PRN PRN Reason: Nausea/Vomiting Pantoprazole Sodium (Protonix) 40 mg PO DAILY [facility] Last Admin: 06/25/17 08:23 Dose: 40 mg Polyethylene Glycol/Electrolytes (Golytely) 2,000 ml PO NOW [facility] Stop: 06/25/17 19:00 Sodium Chloride (Flush - Normal Saline) 10 ml IVF Q12HR [facility] Last Admin: 06/25/17 08:23 Dose: Not Given Sodium Chloride (Flush - Normal Saline) 10 ml IVF PRN PRN PRN Reason: Saline Flush Tramadol HCl (Ultram) 50 mg PO TIDPRN PRN PRN Reason: Acne Last Admin: 06/25/17 04:59 Dose: 50 mg
[2017-06-25 15:59] LABS: Anion Gap 11 mmol/L (10-20); BUN (Urea Nitrogen) 11 mg/dL (8.4-25.7); Calc. Creatinine Clearance 90 mL/min (70-130); Calcium 8.6 mg/dL (7.8-10.44); Carbon Dioxide 27 mmol/L (23-31); Chloride 111 mmol/L (98-107); Estimated GFR-MDRD Greater than 90
[2017-06-25] MEDS: Heparin 5,000 UNITS/ML VIAL SC SCH (21:04)
[2017-06-26] MEDS: Acetaminophen 325 MG TAB PO PRN ×3 (00:41→11:39)
[2017-06-26] MEDS: NS 0.9% w/ 20 MEQ KCL 1,000 ML IV SCH ×2 (04:11→16:44)
[2017-06-26 05:42] LABS: Anion Gap 15 mmol/L (10-20); BUN (Urea Nitrogen) 12 mg/dL (8.4-25.7); Calc. Creatinine Clearance 87 mL/min (70-130); Calcium 8.1 mg/dL (7.8-10.44); Carbon Dioxide 19 mmol/L (23-31); Chloride 106 mmol/L (98-107); Estimated GFR-MDRD Greater than 90
[2017-06-26] MEDS: Heparin 5,000 UNITS/ML VIAL SC SCH ×2 (08:23→20:01)
[2017-06-26] MEDS ORDERED: sulfaSALAzine 500 MG TAB PO SCH ×2 (11:15→13:00)
--- NOTE | 2017-06-26 12:50 | RAD ---
RADIOGRAPH CHEST 1 VIEW RADIOGRAPH ABDOMEN 2 VIEWS: Date: 06/26/17. HISTORY: A 71-year-old female. Followup constipation. COMPARISON: 06/24/17. FINDINGS: CHEST: No consolidation, pulmonary edema, cardiomegaly, or pneumothorax. Lateral costophrenic angles are sh carolynn. Prominent interstitial markings, chronic. No interval change since 06/24/17. ABDOMEN: Aortic stent graft. No evidence of free air. Air fluid levels in the upper abdomen involving transve rse colon and hepatic flexure. Multiple air fluid levels involving multiple small bowel loops withou t dilation. High-grade degenerative disk changes in the lumbar spine. No major interval change. IMPRESSION: 1. No significant interval change since 06/24/17. 2. Multiple air fluid levels in the small intestine and colon. This could either represent ileus or gastroenteritis. 3. Aortoiliac stent graft treating abdominal aortic aneurysm. 4. High-grade lumbar spondylosis. 5. No acute pulmonary findings. RITA [] POS: [facility]
--- NOTE | 2017-06-26 13:26 | PDOC.PN ---
- Subjective Encounter Start Date: 06/26/17 Encounter Start Time: 13:00 Subjective: wants to go home -: no nausea or abd pain -: he is not sure if he passed any sig amount of stool - Objective MAR Reviewed: Yes Vital Signs & Weight: Vital Signs (12 hours) Temp Pulse Resp BP Pulse Ox 06/26/17 08:00 99.2 F 80 16 06/26/17 07:14 99.2 F 80 16 124/65 94 L 06/26/17 04:00 100.0 F H 94 16 101/62 92 L Weight Admit Weight 134 lb 7.7 oz Weight 134 lb 7.7 oz I&O: 06/25/17 06/26/17 06/27/17 06:59 06:59 06:59 Intake Total 1621 120 Balance 1621 120 Result Diagrams: 06/25/17 03:49 06/26/17 04:21 Phys Exam - Physical Examination HEENT: PERRLA, sclera anicteric Neck: no JVD, supple Respiratory: no wheezing, no rales Cardiovascular: RRR, no significant murmur Gastrointestinal: soft, non-tender, no distention, positive bowel sounds Musculoskeletal: no edema, pulses present Neurological: non-focal, moves all 4 limbs Dx/Plan (1) Ileus Code(s): K56.7 - ILEUS, UNSPECIFIED Status: Acute Comment: ?sbo (2) Hypokalemia Code(s): E87.6 - HYPOKALEMIA Status: Acute (3) Dehydration Code(s): E86.0 - DEHYDRATION Status: Acute (4) Essential (primary) hypertension Code(s): I10 - ESSENTIAL (PRIMARY) HYPERTENSION Status: Acute (5) PAD (peripheral artery disease) Code(s): I73.9 - PERIPHERAL VASCULAR DISEASE, UNSPECIFIED Status: Chronic Comment: prior aortoiliac graft (6) Rheumatoid arthritis Code(s): M06.9 - RHEUMATOID ARTHRITIS, UNSPECIFIED Status: Chronic Qualifiers: Rheumatoid arthritis location: multiple sites Rheumatoid factor presence: unspecified presence Qualified Code(s): M06.9 - Rheumatoid arthritis, unspecified (7) Chronic anemia Code(s): D64.9 - ANEMIA, UNSPECIFIED Status: Chronic - Plan abd xray results reviewed -: d/w , will see pt -: keep pt npo, had fever of 102 this am -: cultures, start zosyn, iv fluids -: stool studies * . Review of Systems - Medications/Allergies Allergies/Adverse Reactions: Allergies Allergy/AdvReac Type Severity Reaction Status Date / Time No Known Drug Allergies Allergy Verified 06/18/17 01:10 Medications: Current Medications Acetaminophen (Tylenol) 650 mg PO Q4H PRN PRN Reason: Headache/Fever or Pain Last Admin: 06/26/17 11:39 Dose: 650 mg Duloxetine HCl (Cymbalta) 60 mg PO DAILY [facility] Last Admin: 06/26/17 08:22 Dose: 60 mg Ferrous Sulfate (Feosol) 325 mg PO DAILYPRN PRN PRN Reason: Acne Heparin Sodium (Porcine) (Heparin) 5,000 units SC BID [facility] Last Admin: 06/26/17 08:23 Dose: Not Given Potassium Chloride/Sodium Chloride (Ns 0.9% W/ 20 Meq Kcl) 1,000 mls @ 100 mls/ hr IV .Q10H [facility] Last Admin: 06/26/17 04:11 Dose: 1,000 mls Piperacillin Sod/Tazobactam (Sod 3.375 gm/ Sodium Chloride) 100 mls @ 200 mls/ hr IVPB Q6HR [facility] Ondansetron HCl (Zofran) 4 mg IVP Q6H PRN PRN Reason: Nausea/Vomiting Pantoprazole Sodium (Protonix) 40 mg PO DAILY [facility] Last Admin: 06/26/17 08:23 Dose: 40 mg Sodium Chloride (Flush - Normal Saline) 10 ml IVF Q12HR [facility] Last Admin: 06/26/17 08:38 Dose: Not Given Sodium Chloride (Flush - Normal Saline) 10 ml IVF PRN PRN PRN Reason: Saline Flush Sulfasalazine (Azulfidine) 1,500 mg PO BID [facility] Tramadol HCl (Ultram) 50 mg PO TIDPRN PRN PRN Reason: Acne Last Admin: 06/25/17 04:59 Dose: 50 mg
--- NOTE | 2017-06-26 13:48 | PRG ---
DATE OF SERVICE: 06/26/2017 The patient is seen on request of Dr. Avendano at [facility]. REASON FOR CONSULTATION: Abdominal pain. HISTORY OF PRESENT ILLNESS: This is a 77-year-old male admitted 2 days ago with a history of midepig astric abdominal pain. CT scan showed fecalization of the terminal ileum, some extra stool in the ri ght colon and dilation of the intestine and colon consistent with possible ileus. The patient was gi anton some stool softeners. His severe significant pain has improved. He is not vomiting. He did hav e a fever too since he has been here. His infectious count is down to 12. He really wants to go alyssa e today and he is hungry. PAST MEDICAL HISTORY: Includes hypertension, rheumatoid arthritis, hyperlipidemia, hepatitis, and hi story of GI bleed. PAST SURGICAL HISTORY: Includes aortic stent and EGD. SOCIAL HISTORY: He smokes. No alcohol or other drugs. REVIEW OF SYSTEMS: Ten system review of systems otherwise negative as described above. MEDICINES: See list. ALLERGIES: No known drug allergies. PHYSICAL EXAMINATION: VITAL SIGNS: Blood pressure is 124/65, pulse 80, respirations 16, afebrile now, last temperature 101 .5 at midnight. HEENT: Sclerae are anicteric. Oropharynx clear. NECK: No lymphadenopathy. CHEST: Clear. HEART: Regular rate and rhythm. ABDOMEN: Soft, nontender, nondistended. No abdominal hernias. EXTREMITIES: No ischemia or edema to extremities. LABORATORY DATA AND IMAGING: White blood cell count is 12, he has 1 band, his hemoglobin is 8, and p latelet count is 312. Sodium 137, potassium 3.4, and creatinine 0.66. CT scan reviewed shows no obv ious intraabdominal pathology. Plain films from today show air in the small bowel, but lot of air in the colon as well. No significant increase in stool in the colon on today's films. ASSESSMENT: Unsure etiology of this abdominal pain, but he is stable to be discharged. This could a ll be related to previous gastritis seen on recent hospitalization. PLAN: It is okay to discontinue from my standpoint, no surgical intervention needed. We will follow as needed.
[2017-06-26] MEDS: Piperacillin/Tazobactam 3.375 GM in Sodium Chloride 0.9% 100 ML IVPB SCH ×2 (18:16→23:34)
[2017-06-26] MEDS: traMADol HCl 50 MG TAB PO PRN (18:23)
[2017-06-26] MEDS: sulfaSALAzine 500 MG TAB PO SCH (20:00)
[2017-06-27] MEDS: traMADol HCl 50 MG TAB PO PRN ×3 (03:32→23:34)
[2017-06-27] MEDS: NS 0.9% w/ 20 MEQ KCL 1,000 ML IV SCH ×3 (03:34→20:37)
[2017-06-27] MEDS: Piperacillin/Tazobactam 3.375 GM in Sodium Chloride 0.9% 100 ML IVPB SCH ×4 (05:43→23:34)
[2017-06-27] MEDS: sulfaSALAzine 500 MG TAB PO SCH ×2 (08:23→20:35)
[2017-06-27] MEDS: Heparin 5,000 UNITS/ML VIAL SC SCH ×2 (08:28→20:37)
[2017-06-27 09:21] LABS: Anion Gap 9 mmol/L (10-20); BUN (Urea Nitrogen) 13 mg/dL (8.4-25.7); Calc. Creatinine Clearance 90 mL/min (70-130); Calcium 7.9 mg/dL (7.8-10.44); Carbon Dioxide 24 mmol/L (23-31); Chloride 106 mmol/L (98-107); Estimated GFR-MDRD Greater than 90; Mean Platelet Volume 8.6 fL (7.4-10.4); Red Blood Cell (RBC) Count 2.76 mill/uL (4.70-6.10); White Blood Cell (WBC) Count 20.8 thou/uL (4.8-10.8)
[2017-06-27 10:52] LABS: Anisocytosis MODERATE=16-30 cells (100X) (0-5/hpf); Hypochromia SLIGHT = 6-15 cells (100X) (0-5/hpf); Neutrophil 83 % (42-75); Polychromasia SLIGHT = 2-3 cells (100X) (0-2/hpf)
--- NOTE | 2017-06-27 12:38 | PDOC.PN ---
- Subjective Encounter Start Date: 06/27/17 Encounter Start Time: 09:00 Subjective: fever has come down to 99 now -: no abd pain, nausea, cough or chest pain - Objective MAR Reviewed: Yes Vital Signs & Weight: Vital Signs (12 hours) Temp Pulse Resp BP Pulse Ox 06/27/17 08:29 99.2 F 76 20 135/69 94 L 06/27/17 08:00 99.2 F 76 20 06/27/17 03:34 97.8 F Weight Admit Weight 134 lb 7.7 oz Weight 134 lb 7.7 oz I&O: 06/26/17 06/27/17 06/28/17 06:59 06:59 06:59 Intake Total 1621 3227 Balance 1621 3227 Result Diagrams: 06/27/17 08:21 06/27/17 08:21 Phys Exam - Physical Examination HEENT: PERRLA, moist MMs Neck: no JVD, supple Respiratory: no wheezing, no rales Cardiovascular: RRR, no significant murmur Gastrointestinal: soft, non-tender, no distention, positive bowel sounds Musculoskeletal: no edema, pulses present Neurological: non-focal, moves all 4 limbs Psychiatric: A&O x 3 Dx/Plan (1) Ileus Code(s): K56.7 - ILEUS, UNSPECIFIED Status: Resolved Comment: ?sbo (2) Hypokalemia Code(s): E87.6 - HYPOKALEMIA Status: Acute (3) Dehydration Code(s): E86.0 - DEHYDRATION Status: Resolved (4) Essential (primary) hypertension Code(s): I10 - ESSENTIAL (PRIMARY) HYPERTENSION Status: Acute (5) PAD (peripheral artery disease) Code(s): I73.9 - PERIPHERAL VASCULAR DISEASE, UNSPECIFIED Status: Chronic Comment: prior aortoiliac graft (6) Rheumatoid arthritis Code(s): M06.9 - RHEUMATOID ARTHRITIS, UNSPECIFIED Status: Chronic Qualifiers: Rheumatoid arthritis location: multiple sites Rheumatoid factor presence: unspecified presence Qualified Code(s): M06.9 - Rheumatoid arthritis, unspecified (7) Chronic anemia Code(s): D64.9 - ANEMIA, UNSPECIFIED Status: Chronic (8) Sepsis Code(s): A41.9 - SEPSIS, UNSPECIFIED ORGANISM Status: Acute Qualifiers: Sepsis type: sepsis due to unspecified organism Qualified Code(s): A41.9 - Sepsis, unspecified organism - Plan wbc is 20k today, is on zosyn, iv fluids -: all inf w/u including cultures are -ve so far -: will consult for help and as his symptoms started with GI -: d/w patient and sister about labs and current plan, he will stay until he -: -is stable for dc * . Review of Systems - Medications/Allergies Allergies/Adverse Reactions: Allergies Allergy/AdvReac Type Severity Reaction Status Date / Time No Known Drug Allergies Allergy Verified 06/18/17 01:10 Medications: Current Medications Acetaminophen (Tylenol) 650 mg PO Q4H PRN PRN Reason: Headache/Fever or Pain Last Admin: 06/26/17 11:39 Dose: 650 mg Duloxetine HCl (Cymbalta) 60 mg PO DAILY [facility] Last Admin: 06/27/17 08:23 Dose: 60 mg Ferrous Sulfate (Feosol) 325 mg PO DAILYPRN PRN PRN Reason: Acne Heparin Sodium (Porcine) (Heparin) 5,000 units SC BID [facility] Last Admin: 06/27/17 08:28 Dose: Not Given Potassium Chloride/Sodium Chloride (Ns 0.9% W/ 20 Meq Kcl) 1,000 mls @ 100 mls/ hr IV .Q10H [facility] Last Admin: 06/27/17 11:56 Dose: 1,000 mls Piperacillin Sod/Tazobactam (Sod 3.375 gm/ Sodium Chloride) 100 mls @ 200 mls/ hr IVPB Q6HR [facility] Last Admin: 06/27/17 11:54 Dose: 100 mls Ondansetron HCl (Zofran) 4 mg IVP Q6H PRN PRN Reason: Nausea/Vomiting Pantoprazole Sodium (Protonix) 40 mg PO DAILY [facility] Last Admin: 06/27/17 08:24 Dose: 40 mg Sodium Chloride (Flush - Normal Saline) 10 ml IVF Q12HR [facility] Last Admin: 06/27/17 08:26 Dose: Not Given Sodium Chloride (Flush - Normal Saline) 10 ml IVF PRN PRN PRN Reason: Saline Flush Sulfasalazine (Azulfidine) 1,500 mg PO BID [facility] Last Admin: 06/27/17 08:23 Dose: 1,500 mg Tramadol HCl (Ultram) 50 mg PO TIDPRN PRN PRN Reason: Acne Last Admin: 06/27/17 03:32 Dose: 50 mg
--- NOTE | 2017-06-27 20:39 | CON ---
DATE OF CONSULTATION: 06/27/2017 REASON FOR CONSULTATION: Abdominal pain with worsening neutrophilia. HISTORY OF PRESENT ILLNESS: A 71-year-old patient who has a history of hypertension, rheumatoid arth ritis, and peripheral vascular disease as well as a recent admission for upper gastrointestinal bleed ing. During the bleeding episode, patient underwent an upper GI evaluation and there was evidence of distal erosive esophagitis with a shallow ulcer in the distal esophagus, possibly consistent with pi ll esophagitis. There were a few gastric AV malformations and a shallow ulcer at the apex of the duo denal bulb. The patient was discharged on sulfasalazine, omeprazole, ferrous sulfate, tramadol, Cymb dennis, atorvastatin, and nicotine patch. He was advised to stop prednisone and risedronate, which wer e being used for management of rheumatoid arthritis and potential side effects from steroids. The christina mcghee 2 days after discharge developed sudden onset of lower abdominal pain across the lower quadrant s to a severe fairly rapid onset, dry heaving, but no vomiting. He had noticed liquid stool passage since then. He was admitted and initial findings included normal temperature, BP 130/100, pulse oxim etry 97%, appeared comfortable on arrival. Lungs and heart exam were unremarkable. Gastrointestinal exam showed epigastric tenderness, which was mild and some distention. Initial labs with the white cell count 15,000, platelets 429 and 73% neutrophils. The chemistry esse ntially is normal except for hypokalemia. Microbiology studies included stool studies with negative C. diff test. Stool culture is yet with preliminary but no E. coli of 157 isolated at 24 hours and a ssays included a negative Campylobacter and Shiga toxin 1 in 2 assays. The patient has had 4 sets of blood cultures submitted and urine culture and all have been negative. Abdomen and pelvis CT done o n admission revealed fecalization of small bowel at the distal ileum and terminal ileum up to 3 cm, e nlarged prostate, and hydrocele. Patient has been treated with broad spectrum antimicrobial coverage with Zosyn and IV fluids. He has noticed improvement in the past few days. Repeat acute abdomen se omar from yesterday showed multiple air fluid levels in the small intestine and colon. Currently, he is awake, alert, oriented. No headaches, visual symptoms, sore throat, odynophagia, dy sphagia, no cough or sputum production or chest pain, no back pain and abdominal pain has improved ma rkedly. No genitourinary symptoms. Still had liquid stool just a couple of hours ago. No neurologi rogelio symptoms. PAST MEDICAL HISTORY: Hypertension, rheumatoid arthritis, hyperlipidemia, recent GI bleed secondary to esophagitis and esophageal ulcer and also pyloric channel ulcer, and history of peripheral vascula r disease. PAST SURGICAL HISTORY: Revascularization of lower extremity and EGD. SOCIAL HISTORY: Lives in [place] by himself. He used to work in the oil field and other jobs, cu rrent smoker. ALLERGIES: None. MEDICATIONS: Medications have been reviewed above. FAMILY HISTORY: Noncontributory. PHYSICAL EXAMINATION: VITAL SIGNS: T-max 101.5 and now is down to 99.2, BP 130/69, pulse 76, respirations 20, O2 saturatio n 94%. SKIN: The patient has an area of superficial abrasion in the posterior aspect of the left arm second zafar to injuries he sustained after nearly falling down during the upper GI bleeding episode. No lymp hadenopathy. HEENT: Ocular movements are conjugate. He has no [place] teeth left. Oral mucosa is normal. NECK: Supple, no jugular distention or carotid bruits. LUNGS: With symmetric air entry without any wheezing or crackles. S1, S2, regular rate. No S3 or S 4, no murmurs. ABDOMEN: Soft. Not distended or tender anymore. He used to be very tender in the recent past. [place] el sounds are little bit increased. No ascites. No bladder distention. EXTREMITIES: No joint inflammatory activity. Pulses are diminished in dorsalis pedis. I could not feel any popliteal pulses. He moves extremities equally. NEUROLOGIC: Cognitive function appears to be intact. LABORATORY DATA: Sodium is 139 and 136, creatinine stable. Liver profile normal. Albumin 3.4. ASSESSMENT AND PLAN: 1. History of hypertension and peripheral vascular disease. 2. Chronic smoking. 3. Upper gastrointestinal bleed with esophageal erosions and ulceration, treated with cauterization. 4. Acute onset of abdominal pain with profuse diarrhea. Findings consistent with distal intestinal obstruction syndrome with fecalization of the distal ileum. DISCUSSION: Syndrome of distal intestinal obstruction is usually either secondary to inspissation of the contents of the proximal large bowel or distal small bowel, sometimes associated with cystic fib rosis, but sometimes with other causes of inspissation of the fecal component. Other sources of infl ammatory change at that location with inflammatory changes at the distal ileum would also be of maria del rosario rn. Vascular insufficiency appeared to be less likely in the opinion of the radiologist according to the patency of the vascular structures identified by the CT scan. The stool studies were all negati ve. There has been worsening neutrophilia, but clinically the patient is improving, one should expec t reversal of the neutrophilia increase which is mostly mature forms at this time. Continue current management, monitor for further improvement and probably we will need a colonoscopy for evaluation do wn the road. If he continues to have diarrhea and there is recurrence of pain and this will have to be done sooner with consultation.
[2017-06-28] MEDS: NS 0.9% w/ 20 MEQ KCL 1,000 ML IV SCH ×2 (02:54→13:58)
[2017-06-28] MEDS: Piperacillin/Tazobactam 3.375 GM in Sodium Chloride 0.9% 100 ML IVPB SCH ×2 (05:18→11:46)
[2017-06-28] MEDS: traMADol HCl 50 MG TAB PO PRN ×2 (05:22→17:44)
[2017-06-28 06:17] LABS: #Eosinphils 0.1 thou/uL (0.0-0.7); #Monocytes 0.9 thou/uL (0.11-0.59); #Neutrophils 10.9 thou/uL (1.40-6.50); %Basophils 0.2 % (0.0-1.0); %Eosinophils 0.8 % (0.0-10.0); %Lymphocytes 14.6 % (21.0-51.0); %Monocytes 6.3 % (0.0-10.0); Hematocrit 22.8 % (42.0-52.0); Red Blood Cell (RBC) Count 2.63 mill/uL (4.70-6.10)
[2017-06-28 06:27] LABS: ALT (SGPT) 21 U/L (8-55); AST (SGOT) 26 U/L (5-34); Alkaline Phosphatase 61 U/L (40-150); Anion Gap 10 mmol/L (10-20); BUN (Urea Nitrogen) 11 mg/dL (8.4-25.7); Bilirubin, Total 0.3 mg/dL (0.2-1.2); Calc. Creatinine Clearance 93 mL/min (70-130); Calcium 7.8 mg/dL (7.8-10.44); Carbon Dioxide 22 mmol/L (23-31); Chloride 106 mmol/L (98-107); Estimated GFR-MDRD Greater than 90; Globulin 2.1 g/dL (2.4-3.5); Protein, Total 4.8 g/dL (5.8-8.1)
[2017-06-28] MEDS: sulfaSALAzine 500 MG TAB PO SCH (08:18)
[2017-06-28] MEDS: Potassium Chloride 20 MEQ TAB PO SCH ×2 (08:19→17:38)
[2017-06-28] MEDS: Heparin 5,000 UNITS/ML VIAL SC SCH (08:22)
--- NOTE | 2017-06-28 11:23 | PDOC.PN ---
- Subjective Encounter Start Date: 06/28/17 Encounter Start Time: 10:30 Subjective: no abd pain, nausea or vomiting -: is passing stool which is not black or bloody -: wants to go home come what may today - Objective MAR Reviewed: Yes Vital Signs & Weight: Vital Signs (12 hours) Temp Pulse Resp BP Pulse Ox 06/28/17 08:30 98.7 F 68 18 134/71 93 L 06/28/17 05:22 98.3 F 06/27/17 23:37 98.6 F Weight Admit Weight 134 lb 7.7 oz Weight 134 lb 7.7 oz I&O: 06/27/17 06/28/17 06/29/17 06:59 06:59 06:59 Intake Total 7077 3893 Balance 3227 3893 Result Diagrams: 06/28/17 05:49 06/28/17 05:49 Phys Exam - Physical Examination HEENT: PERRLA, moist MMs Neck: no JVD, supple Respiratory: no wheezing, no rales Cardiovascular: RRR, no significant murmur Gastrointestinal: soft, non-tender, no distention, positive bowel sounds Musculoskeletal: no edema, pulses present Neurological: non-focal, moves all 4 limbs Psychiatric: A&O x 3 Dx/Plan (1) Ischemic colitis, enteritis, or enterocolitis Code(s): K55.9 - VASCULAR DISORDER OF INTESTINE, UNSPECIFIED Status: Suspected (2) Ileus Code(s): K56.7 - ILEUS, UNSPECIFIED Status: Resolved Comment: ?sbo (3) Hypokalemia Code(s): E87.6 - HYPOKALEMIA Status: Resolved (4) Dehydration Code(s): E86.0 - DEHYDRATION Status: Resolved (5) Essential (primary) hypertension Code(s): I10 - ESSENTIAL (PRIMARY) HYPERTENSION Status: Acute (6) PAD (peripheral artery disease) Code(s): I73.9 - PERIPHERAL VASCULAR DISEASE, UNSPECIFIED Status: Chronic Comment: prior aortoiliac graft (7) Rheumatoid arthritis Code(s): M06.9 - RHEUMATOID ARTHRITIS, UNSPECIFIED Status: Chronic Qualifiers: Rheumatoid arthritis location: multiple sites Rheumatoid factor presence: unspecified presence Qualified Code(s): M06.9 - Rheumatoid arthritis, unspecified (8) Chronic anemia Code(s): D64.9 - ANEMIA, UNSPECIFIED Status: Chronic (9) Sepsis Code(s): A41.9 - SEPSIS, UNSPECIFIED ORGANISM Status: Acute Qualifiers: Sepsis type: sepsis due to unspecified organism Qualified Code(s): A41.9 - Sepsis, unspecified organism - Plan wbc down to 14 from 20k, has been afebrile last 24hrs, had temp of 101 befo -: Is adamant on going home, I gave him and his sister a complete detail of la -: -b reports his vital signs and the reason why I want him in hospital yester -: -day. He has been wanting to go home from the time he got admitted. -: is on 100mls/hr NS, has prior h/o aortoiliac graft, might have ischemic col * . -itis, but has no abd pain and clinically feels good. Akins cultures are -ve to date. His Hb is trending around 7g now. is on zosyn empirically. Will d/w Dr.Case Garcia when he gets a chance to see him today. I donot feel comfortable sending him home with current lab values and him being on zosyn, he will likely decompensate if he goes home. Its unclear as of now the reason for his leucocytosis and fever of 101. Review of Systems - Medications/Allergies Allergies/Adverse Reactions: Allergies Allergy/AdvReac Type Severity Reaction Status Date / Time No Known Drug Allergies Allergy Verified 06/18/17 01:10 Medications: Current Medications Acetaminophen (Tylenol) 650 mg PO Q4H PRN PRN Reason: Headache/Fever or Pain Last Admin: 06/26/17 11:39 Dose: 650 mg Duloxetine HCl (Cymbalta) 60 mg PO DAILY [facility] Last Admin: 06/28/17 08:18 Dose: 60 mg Ferrous Sulfate (Feosol) 325 mg PO DAILYPRN PRN PRN Reason: Acne Heparin Sodium (Porcine) (Heparin) 5,000 units SC BID [facility] Last Admin: 06/28/17 08:22 Dose: Not Given Potassium Chloride/Sodium Chloride (Ns 0.9% W/ 20 Meq Kcl) 1,000 mls @ 100 mls/ hr IV .Q10H [facility] Last Admin: 06/28/17 02:54 Dose: 1,000 mls Piperacillin Sod/Tazobactam (Sod 3.375 gm/ Sodium Chloride) 100 mls @ 200 mls/ hr IVPB Q6HR [facility] Last Admin: 06/28/17 05:18 Dose: 100 mls Ondansetron HCl (Zofran) 4 mg IVP Q6H PRN PRN Reason: Nausea/Vomiting Pantoprazole Sodium (Protonix) 40 mg PO DAILY [facility] Last Admin: 06/28/17 08:19 Dose: 40 mg Potassium Chloride (K-Dur) 40 meq PO BID[facility] Last Admin: 06/28/17 08:19 Dose: 40 meq Sodium Chloride (Flush - Normal Saline) 10 ml IVF Q12HR [facility] Last Admin: 06/28/17 08:22 Dose: 10 ml Sodium Chloride (Flush - Normal Saline) 10 ml IVF PRN PRN PRN Reason: Saline Flush Sulfasalazine (Azulfidine) 1,500 mg PO BID [facility] Last Admin: 06/28/17 08:18 Dose: 1,500 mg Tramadol HCl (Ultram) 50 mg PO TIDPRN PRN PRN Reason: Acne Last Admin: 06/28/17 05:22 Dose: 50 mg
[2017-06-28 11:58] VITALS: BP 119/56; TEMP 98.6
--- NOTE | 2017-06-28 15:00 | PQF ---
DATE: 06-28-17 ATTN: DR. JONNY VELÁSQUEZ Please exercise your independent, professional judgment in responding to the clarification form. Clinical indicators are provided on the bottom of this form for your review [x ] Acute Sepsis - Present on Admission [ ] Acute Sepsis- Not Present on Admission [ ] Does not apply to this patient [ ] Unable to determine [ ] Other diagnosis: Coding guidelines require hospitals to identify whether a diagnosis was present on admission (POA) or not. To accurately assign the appropriate POA indicator, this information must be clearly documented within the medical record. CLINICAL INDICATORS - SIGNS / SYMPTOMS / LABS Documentation of: ER DIAGNOSIS: ABDOMINAL PAIN, ELEVATED WBC, VOMITING Documentation of: PN DR. VELÁSQUEZ 06-27-17: ACUTE SEPSIS Documentation of: PN DR. VELÁSQUEZ 06-28-17: ACUTE SEPSIS RISK FACTORS: PN DR. VELÁSQUEZ 06-27-17: RESOLVED ILEUS, CHRONIC HTN, CHRONIC ANEMIA EXTREMES OF AGE TREATMENT: (06-26-17) ZOSYN IV, (06-25-17) IVF Please zhou a response below if a more specific term indicating a diagnosis and/ or acuity level for this condition can be identified. Please exercise your independent, professional judgment in responding to the clarification form. Clinical indicators are provided at the top of this form for your review. Thank you. (This form is maintained as a part of the permanent medical record) 2014 [employer] All Rights Reserved CHRISTINE [email or web address] Office: [phone] [facility]
--- NOTE | 2017-06-28 17:34 | PRG ---
DATE OF SERVICE: 06/28/2017 SUBJECTIVE: Feeling better. Pain has completely resolved in the abdominal area. No respiratory sym ptoms. OBJECTIVE: GENERAL: He has been afebrile. LUNGS: Clear. ABDOMEN: Soft, nontender. LABORATORY DATA: His white cell count is down to 14,000, hemoglobin 7.3, platelets 275. Liver profi le normal. Microbiology with positive occult blood in stool. ASSESSMENT AND DISCUSSION: Diarrhea with abdominal pain and distal intestinal obstruction syndrome w ith fecalization of distal ilium. The patient is improving and will need endoscopy in the outpatient setting, would advise discontinuat ion of antimicrobial therapy at this point in time.
--- NOTE | 2017-06-28 18:41 | CON ---
DATE OF CONSULTATION: 06/28/2017 TYPE OF CONSULTATION: GI inpatient consultation note. REQUESTING PHYSICIAN: Sourav Avendano M.D. REASON FOR CONSULTATION: Abdominal pain and fever. HISTORY OF PRESENT ILLNESS: Maxim Real is a 71-year-old man whom I met a couple of weeks ago during a hospitalization with acute upper gastrointestinal bleeding. I performed EGD on 06/18/2017 and this demonstrated severe distal erosive esophagitis with a shallow ulceration, salmon -colored mucosa from 35- 41 cm, a few tiny gastric AVMs which were nonbleeding and also a shallow, but circumferential ulcer at the apex of the duodenal bulb. This was in the context of heavy use of NSAIDs including BC powder, prednisone and risedronate, which I advised that he discontinue all of those medications. He was started on twice daily PPI. The patient was admitted to the hospital again on 06/24/2017. He states that he had had a barbecue sandwich and fairly acutely started having epigastric pain with nausea and nonbloody emesis. This is what prompted his presentation. Upon arrival, he had a CT scan with oral contrast only showing fecalization of contents in the terminal ileum and cecum which was read as nonspecific, but possibly consistent with ileus or inflammatory process. Shortly after admission , the patient states his abdominal discomfort significantly improved. He had not had a bowel movement for about a day and so he did get 2 liters of GoLYTELY ; however, after he drank that he did spike a fever briefly to 101 and he also developed a leukocytosis with white count going from 15-20. He was started on IV Zosyn. He was seen by Dr. Hess who felt that there was no surgical process going on and this was possibly all related to his gastritis. He was seen by Dr. Johnson yesterday who felt that this whole syndrome may be related to distal intestinal obstructive process. The patient tells me for the past few days, his abdominal pain has been gone and has not recurred. His appetite has not been a great, but he has been tolerating his diet. He has continued to have bowel movements. In fact, he tells me that he has been having diarrhea with 8 or 9 bowel movements per day really over the past couple of months. He never reported any diarrhea when I saw him a couple of weeks ago. He tells me that he was treated for salmonella infection 3 months ago. Note that stool studies this hospitalization are negative. PAST MEDICAL HISTORY: Tobacco abuse, rheumatoid arthritis, hypertension, hyperlipidemia, peripheral arterial disease with aortobiiliac stent about 3 years ago. REVIEW OF SYSTEMS: Full review of systems including constitutional, head, eyes , ears, nose, throat, GI, , cardiovascular, respiratory, musculoskeletal, and neurologic systems is negative except as noted in the HPI. SOCIAL HISTORY: Smokes about 1.5 packs of cigarettes per day. No alcohol or drug use. FAMILY HISTORY: Negative for malignancy. MEDICATIONS: Cymbalta, Protonix 40 mg daily, Zosyn 3.375 grams q.6 hour IV, sulfasalazine 1500 mg b.i.d., tramadol 50 mg t.i.d. p.r.n. ALLERGIES: No known drug allergies. PHYSICAL EXAMINATION: VITAL SIGNS: Temperature 98.6, pulse 76, blood pressure 119/56, 93% oxygen saturation on room air. GENERAL: A 71-year-old man, in no distress. SKIN: No jaundice, no rashes were palpable. EYES: No scleral icterus. Extraocular movements intact. ENT: Mucous membranes moist, no oral lesions. LYMPH: No submandibular, supraclavicular lymphadenopathy. THYROID: Nontender to palpation. HEART: Regular rate and rhythm. LUNGS: Clear to auscultation bilaterally. ABDOMEN: Bowel sounds present. Soft, nontender to deep palpation throughout. EXTREMITIES: No peripheral edema. VESSELS: Radial pulses 2+ bilaterally. NEUROLOGICAL: Cranial nerves II-XII intact bilaterally. No focal deficits. LABORATORY STUDIES: Hemoglobin 7.3 down slightly from admission, WBC 14 down from 20 yesterday, platelets 275, BUN normal at 13, creatinine 0.64. LFTs normal with total bilirubin 0.2, alkaline phosphatase 60, AST 16, ALT 11, albumin 3.1, lipase 25. IMAGING STUDIES: On 06/24/2017 abdominal x-ray showed COPD, no evidence of bowel dilation. On 06/24/2017 CT of the abdomen and pelvis demonstrated fecalization of contents in the ileum and cecum which is nonspecific. There is an abdominal aortic aneurysm with aortobiiliac graft. There is prostate enlargement and degenerative joint disease of the spine. On 06/26/2017 abdominal x-ray showed nonspecific air fluid levels in the small bowel and colon with no evidence of bowel dilation. ASSESSMENT AND PLAN: 1. Epigastric abdominal pain, resolved in the past few days. 2. Duodenal ulcer at the bulb, shallow, but circumferential. 3. Esophagitis. 4. Fever and leukocytosis, unclear etiology. 5. Abnormal CT scan of the distal small bowel, showing possible ileitis. 6. Diarrhea. The patient's presenting abdominal pain really resolved shortly after admission , was epigastric in location, and I think likely this is just related to his duodenal ulcer. The reason for his fever and degree of leukocytosis is less clear. I note the negative stool studies. The CT finding of fecalization of contents in the distal terminal ileum may not really mean anything, but I agree could signify an inflammatory process in the distal small bowel. This complaint of diarrhea is a bit new, but could be related to terminal ileal pathology. I do think colonoscopy is certainly warranted for further investigation, but on the other hand, the patient's abdomen is currently benign and he is requesting to leave the hospital. He already has an appointment with me set up on an outpatient basis in 1 week from today. He is requesting reevaluation at that time. I think from a GI standpoint if he is tolerating his diet and not having any more pain, then it is okay from my standpoint if he is discharged from the hospital. I did warn him that if he has any overt evidence of bleeding, recurrence of significant abdominal pain, or recurrence of fever, that he should have a low threshold to come back to the hospital. I would keep him on a PPI, please have him on twice daily dosing for now. I will plan to see him back in about a week and recheck CBC. At that time, we will likely be setting up an outpatient colonoscopy. We will likely set him up for a repeat upper endoscopy at the same time for reevaluation of that duodenal ulcer. Thank you for the consultation. Please call back with questions or concerns. HMEAL
--- NOTE | 2017-06-29 11:34 | DIS ---
DATE OF DISCHARGE: 06/28/2017 DISCHARGE DISPOSITION: Home. PRIMARY DISCHARGE DIAGNOSES: 1. Likely ischemic colitis/enteritis. 2. Ileus. 3. Dehydration. 4. Hypertension. 5. Peripheral vascular disease. 6. History of rheumatoid arthritis. 7. Chronic anemia. 8. Suspected sepsis. PROCEDURES DONE DURING HOSPITALIZATION: Abdominal pelvic CAT scan done on the day of admission showe d fecalized small bowl of the distal ileum and terminal ileum measuring up to 3 cm, marked enlargemen t of prostate, large left-sided hydrocele, prior aortic aneurysm with aortobiiliac graft. Acute abdo adry series done on 06/26/2017 showed no significant interval change when compared to prior x-ray. Multiple air fluid levels were seen in the small and intestine colon. Stool studies were negative. Blood cultures x2 no growth. Urine culture grew 10-25,000 mixed roberto. Discharge white count of 14, which had gone up to 20 on the . H&H 7 and 22, platelet count of 275 , albumin is 2.7. Lipase was 25. INPATIENT CONSULTS: Dr. Hess for General Surgery, Dr. Jose Hyatt for Gastroenterology. DISCHARGE MEDICATIONS: Cymbalta 60 mg p.o. daily, omeprazole 20 mg daily, sulfasalazine 1500 mg p.o. twice daily, Ultram p.r.n. for pain. ALLERGIES: No known drug allergies. DISCHARGE PLAN: Ferrous sulfate 325 mg twice daily. BRIEF COURSE DURING HOSPITALIZATION: The patient initially got admitted on the with complaints of abdominal pain. Initial CAT scan was suspicious for small-bowel obstruction. He was kept n.p.o. and was on IV fluids. The patient also had hypokalemia and all his electrolytes were corrected. He has had some liquid bowel movements 48 hours into hospitalization and the patient was wanting to go h ome come what november. He developed a fever and elevated white count as well. Dr. Hess was consulted for General Surgery. His abdomen was benign and as the patient was wanting to go home he was cleare d by General Surgery. He has also had consultation with Dr. Johnson in view of persistent fever with e levated white count. He has had prior history of aortobiiliac graft with suspicion of possible ische gen colitis as well. Dr. Jose Hyatt for Gastroenterology was consulted. On the , patient gave an ultimatum that he was going home come what may. In view of this, he was discharged after Dr. Jose Hyatt saw him in the afternoon. He has a followup appointment on the to see him. He was also ad vised to get a CBC to check for his hemoglobin and trending of his white count. He is advised to com e to the ER if he develops fever, abdominal pain, nausea, or other disabling symptoms. He was empiri mick on Zosyn during his stay along with IV hydration. Both he and his family in the room clearly u nderstand the risk of going home today. Please see a face to face documentation on [facility] for the day of discharge.
--- NOTE | 2017-07-06 13:27 | EKG ---
Test Reason : ABD PAIN Blood Pressure : / mmHG Vent. Rate : 083 BPM Atrial Rate : 083 BPM P-R Int : 142 ms QRS Dur : 148 ms QT Int : 476 ms P-R-T Axes : 073 -32 051 degrees QTc Int : 559 ms Normal sinus rhythm Left axis deviation Right bundle branch block Abnormal ECG Confirmed by LEX STOVALL ([id number]), greeting card editor BRITTNEE ADAN ([id number]) on 07/06/2017 1:27:17 PM Referred By: Confirmed By:LEX STOVALL
== END 2017-06-28 17:58 | disposition home or self-care (01) | DRG 872 ==
LOC: ERS 17:22 → T4-A 21:10 → OBSVTOIN 06-25 12:26
PROVIDERS: ADMIT Internal Medicine; ATTEND Internal Medicine
DX: A41.9 Sepsis, unspecified organism (principal); K56.609 Unspecified intestinal obstruction, unspecified as to partial versus complete obstruction; K55.9 Vascular disorder of intestine, unspecified; K26.9 Duodenal ulcer, unspecified as acute or chronic, without hemorrhage or perforation; D72.0 Genetic anomalies of leukocytes; K22.10 Ulcer of esophagus without bleeding; K56.7 Ileus, unspecified; D64.9 Anemia, unspecified; R10.13 Epigastric pain; M06.9 Rheumatoid arthritis, unspecified; I10 Essential (primary) hypertension; E78.5 Hyperlipidemia, unspecified; E87.6 Hypokalemia; E86.0 Dehydration; I73.9 Peripheral vascular disease, unspecified; F17.210 Nicotine dependence, cigarettes, uncomplicated
CPT/HCPCS: 36415; 74022; 74177; 80048; 80053; 82274; 82553; 83690; 84484; 85007; 85025; 85027; 87015; 87040; 87045; 87046; 87086; 87324; 87449; 87899; 93005; 96361; 96365; 96375; 96376; A4216; C9113; J1170; J1644; J2270; J2405; J2543; J3480; J7050; S0028

== ENCOUNTER 2017-07-02 12:34 | Emergency (ER) | payer MEDICARE, OTHER ==
[2017-07-02 15:21] LABS: Bilirubin Negative (Negative); Blood, Urine Negative (Negative); Glucose, Urine (Dipstick) Negative (Negative); Ketone, Urine Negative (Negative); Nitrite Negative (Negative); Protein, Urine (Dipstick) Negative (Neg-Trace); Urobilinogen 0.2 mg/dL (0.2-1.0)
[2017-07-02 15:33] LABS: Mean Platelet Volume 8.2 fL (7.4-10.4); Red Blood Cell (RBC) Count 3.15 mill/uL (4.70-6.10); White Blood Cell (WBC) Count 13.1 thou/uL (4.8-10.8)
[2017-07-02 15:52] LABS: Lactic Acid - Sepsis 0.9 mmol/L (0.5-2.2)
[2017-07-02 15:54] LABS: ALT (SGPT) 21 U/L (8-55); AST (SGOT) 19 U/L (5-34); Alkaline Phosphatase 76 U/L (40-150); Anion Gap 11 mmol/L (10-20); BUN (Urea Nitrogen) 11 mg/dL (8.4-25.7); Bilirubin, Total 0.3 mg/dL (0.2-1.2); Calc. Creatinine Clearance 0 mL/min (70-130); Calcium 8.8 mg/dL (7.8-10.44); Carbon Dioxide 29 mmol/L (23-31); Chloride 99 mmol/L (98-107); Estimated GFR-MDRD 83; Globulin 2.7 g/dL (2.4-3.5); Protein, Total 5.8 g/dL (5.8-8.1)
[2017-07-02 15:57] LABS: #Eosinphils 0.1 thou/uL (0.0-0.7); #Monocytes 1.8 thou/uL (0.11-0.59); #Neutrophils 9.1 thou/uL (1.40-6.50); %Basophils 0.3 % (0.0-1.0); %Eosinophils 0.7 % (0.0-10.0); %Lymphocytes 15.2 % (21.0-51.0); Anisocytosis SLIGHT = 6-15 cells (100X) (0-5/hpf); Hypochromia SLIGHT = 6-15 cells (100X) (0-5/hpf); Polychromasia SLIGHT = 2-3 cells (100X) (0-2/hpf)
== END 2017-07-02 18:02 ==
LOC: ERS 12:34
DX: N43.3 Hydrocele, unspecified (principal); M06.9 Rheumatoid arthritis, unspecified; E78.00 Pure hypercholesterolemia, unspecified; I10 Essential (primary) hypertension; F17.210 Nicotine dependence, cigarettes, uncomplicated; Z79.52 Long term (current) use of systemic steroids; Z79.899 Other long term (current) drug therapy; Z79.891 Long term (current) use of opiate analgesic
CPT/HCPCS: 36415; 51702; 80053; 81003; 83605; 85025; 87086

== ENCOUNTER 2017-07-05 11:30 | Observation (INO) | payer MEDICARE, OTHER ==
[2017-07-05 12:55] LABS: #Basophils 0.1 thou/uL (0.0-0.2); #Eosinphils 0.1 thou/uL (0.0-0.7); #Lymphocytes 1.8 thou/uL (1.20-3.40); #Monocytes 1.1 thou/uL (0.11-0.59); #Neutrophils 6.8 thou/uL (1.40-6.50); %Basophils 0.7 % (0.0-1.0); %Eosinophils 0.8 % (0.0-10.0); %Lymphocytes 18.2 % (21.0-51.0); %Monocytes 11.2 % (0.0-10.0); Hematocrit 31.4 % (42.0-52.0); Mean Platelet Volume 8.2 fL (7.4-10.4); Red Blood Cell (RBC) Count 3.74 mill/uL (4.70-6.10); White Blood Cell (WBC) Count 9.9 thou/uL (4.8-10.8)
[2017-07-05 13:08] LABS: Hypochromia SLIGHT = 6-15 cells (100X) (0-5/hpf); Polychromasia SLIGHT = 2-3 cells (100X) (0-2/hpf)
[2017-07-05 13:16] LABS: Lactic Acid - Sepsis 1.5 mmol/L (0.5-2.2)
[2017-07-05 13:23] LABS: Troponin I 0.014 ng/mL (< 0.028)
[2017-07-05 13:26] LABS: ALT (SGPT) 30 U/L (8-55); AST (SGOT) 42 U/L (5-34); Alkaline Phosphatase 90 U/L (40-150); Anion Gap 16 mmol/L (10-20); BUN (Urea Nitrogen) 16 mg/dL (8.4-25.7); Bilirubin, Total 0.3 mg/dL (0.2-1.2); CK (CPK) 48 U/L (30-200); Calc. Creatinine Clearance 0 mL/min (70-130); Calcium 9.5 mg/dL (7.8-10.44); Carbon Dioxide 25 mmol/L (23-31); Chloride 98 mmol/L (98-107); Estimated GFR-MDRD 78; Globulin 3.1 g/dL (2.4-3.5); Lipase 60 U/L (8-78); Protein, Total 6.6 g/dL (5.8-8.1)
--- NOTE | 2017-07-05 14:54 | RAD ---
SINGLE VIEW OF ABDOMEN: Date: 07/05/17 COMPARISON: None. HISTORY: Hypotension and dehydration. Abdominal pain. FINDINGS: Single view of the abdomen shows a nonspecific, nonobstructed bowel gas pattern. A stent graft is see n within the aorta. There are questionable calcifications projecting over the right renal shadow. The se could represent vascular calcifications. IMPRESSION: Nonobstructive bowel gas pattern. POS: [facility]
--- NOTE | 2017-07-05 16:08 | HP ---
PRIMARY CARE PHYSICIAN: Tawanna Desai D.O. REASON FOR ADMISSION: Sent by Dr. Hyatt for hypotension and diarrhea. HISTORY OF PRESENT ILLNESS: A 71-year-old male with a history of rheumatoid arthritis, who was recen tly admitted in our hospital on 06/17/2017. At that time, patient had hematemesis. The patient was admitted for upper GI bleed. During that admission, patient had upper endoscopy and patient was foun d with distal erosive esophagitis and peptic ulceration in the distal esophagus, which was attributed to be due to pill-induced esophagitis. This patient was taking NSAIDs for his rheumatoid arthritis. At that time, patient was instructed to hold his Plavix and prednisone. Patient was discharged alyssa e on 06/19/2017. Subsequently, patient had a flareup of arthritis and he required readmission on 09/2016 and patient was discharged home on 06/28/2017. Patient required another Emergency Room visit on 07/02/2017. At that time, the patient was having ur inary retention. He was not able to void for 24 hours and that is why in the emergency room, they di d a Tripp catheter, and patient was advised to go to follow up with Urology as an outpatient basis. So far, patient has not made any urology followup. The patient is suffering from diarrhea for almost 3-4 weeks. The patient reports that his diarrhea i s liquidy and without any pus or blood. He denies any currently nausea, vomiting, or hematemesis. H e denies any melenotic stool. He lost about 40 pounds in 2 months. He is feeling more and more weak , and today, he had a post-hospital followup with Dr. Hyatt and patient appeared very sick. He was hy potensive there and Dr. Hyatt sent him to emergency room for admission, as the patient was requiring c olonoscopy. This patient had CT abdomen and pelvis on 06/24/2017. At that time, patient was found with hydrocele , both sides, as well as prostatomegaly with a dilatation of urinary bladder. The patient denies any fever or chills. He denies any headache. He denies any bone pain. He denies any chest pain or palpitation. He reports that he has very poor appetite and he is losing weight. He lives in [place] by himself and he does not have anybody to help him out. Patient reports that after arthritis flareup because he was taken off all his arthritis medications winston renteria started taking again. PAST MEDICAL HISTORY: Peripheral vascular disease, required stent placement; rheumatoid arthritis; h ypertension; dyslipidemia; history of hepatitis of 40 years ago; gastroesophageal reflux disease; pep tic ulcer disease; distal esophagitis. PAST SURGICAL HISTORY: Stent in the leg. Upper endoscopy was done, which showed distal esophagitis. PAST PSYCHIATRIC HISTORY: Anxiety and depression. ALLERGIES: No known drug allergy. CURRENT HOME MEDICATIONS: The patient was discharged on following medications: Cymbalta 60 mg p.o. daily, omeprazole 20 mg p.o. daily, sulfasalazine 1500 mg p.o. b.i.d., tramadol 50 mg t.i.d. p.r.n. SOCIAL HISTORY: Patient lives by himself in [place], [place]. His sister lives in [place], [place] , and his son lives in [place]. He smokes about 1- and 1-1/2-pack per day. He denies any alcohol or other illicit drug abuse. FAMILY HISTORY: He denies any family history of coronary artery disease, stroke, or cancer. Both pa rents lived into their 90s. REVIEW OF SYSTEMS: The following complete review of systems was negative, unless otherwise mentioned in the HPI or below: Constitutional: Weight loss or gain, ability to conduct usual activities. Sk in: Rash, itching. Eyes: Double vision, pain. ENT/Mouth: Nose bleeding, neck stiffness, pain, te nderness. Cardiovascular: Palpitations, dyspnea on exertion, orthopnea. Respiratory: Shortness of breath, wheezing, cough, hemoptysis, fever, or night sweats. Gastrointestinal: Poor appetite, abdo adry pain, heartburn, nausea, vomiting, constipation, or diarrhea. Genitourinary: Urgency, frequen cy, dysuria, nocturia. Musculoskeletal: Pain, swelling. Neurologic/Psychiatric: Anxiety, depressi on. Allergy/Immunologic: Skin rash, bleeding tendency. Please see my HPI for pertinent positives a nd negatives. All other review of systems reviewed and negative except as mentioned in the HPI. EMERGENCY ROOM COURSE: The patient has received IV fluid. PHYSICAL EXAMINATION: VITAL SIGNS: On arrival, blood pressure 103/56, pulse 66, respiratory rate 19, temperature 98.6, sat uration 94% on room air, weight 58.9 kilograms. GENERAL: Patient is currently alert, awake, appears chronically ill, in no obvious acute distress. HEENT: Head: Normocephalic, atraumatic. Eyes: Pupils round and reactive to light. Extraocular mu scles intact. ENT: Dry-appearing mucous membranes. No oral lesions. No pharyngeal erythema, no ex udates. NECK: Supple, no JVD, no thyromegaly, no carotid bruits, no lymph nodes, no meningeal signs of irrit ation. LUNGS: Clear to auscultation without any rhonchi or rales. CARDIAC: S1, S2 regular, without any murmur. ABDOMEN: Soft, bowel sounds present. Patient does have a hernia on both sides. GENITALIA: The patient does have a Tripp catheter in place and hydrocele on both sides. EXTREMITIES: No edema. Good peripheral pulsation. SKIN: No skin rash. HEMATOLOGICAL SYSTEM: No lymphadenopathy. NEUROLOGIC: Nonfocal examination. The patient moves all 4 limbs. Plantar bilateral flexor. PSYCHIATRIC: Normal affect. SIGNIFICANT LABORATORY DATA: CBC: WBC 9.9, hemoglobin 10.0, platelets 516. BMP: Sodium 136, potas sium 3.2, chloride 98, carbon dioxide 25, anion gap 16, BUN 16, creatinine 0.95, glucose 93, calcium 9.5. Lactic acid 1.5. LFT: AST 42, ALT 30, alkaline phosphatase 90, albumin 3.5. Lipase 60, CK 48 , CK-MB 1.3, troponin I 0.014. Patient had CT abdomen and pelvis on 06/24/2017, which showed nonspecific inflammation in terminal il eum, prostatomegaly, dilatation of urinary bladder, hydrocele, and degenerative lumbar spine disease. ASSESSMENT AND PLAN: 1. Acute diarrhea. This patient has 3 weeks of diarrhea. He has a stool study previously done twic e, which was negative for infection, ischemia less likely to be, but suspected for inflammation. Und erlying tumor needs to be excluded. This patient will need colonoscopic evaluation. We will keep hi m on clear liquid diet. This patient was sent by Dr. Hyatt and we will consult him as well to do colo noscopy tomorrow to rule out any underlying pathology. If there is no acute pathology, then patient will need only biopsy. Then he can follow up with Dr. Case after colonoscopy. At this point, no nee d of repeating stool study for infection etiology, as less likely to be infection etiology. We will treat his symptoms with Lomotil and Imodium p.r.n. basis. We will also consider adding Florastor 250 mg p.o. daily. 2. Urinary retention with bladder dilatation, likely related with underlying prostatomegaly. This p atient needs urologic followup and that is why we will consult Urology. We will check a PSA level. This patient will need prostate biopsy to rule out prostate cancer and he will need eventually transu rethral resection of the prostate or prostate surgery to relieve his obstruction. He will need outpa tient voiding trial as well. 3. Bilateral hydrocele. This patient has underlying inguinal hernia. At this point, I advised him to follow up with general surgeon to take care of his hernia to relieve his hydrocele. 4. Hypokalemia. We will replace potassium with IV fluid and we will recheck magnesium and phosphoru s level tomorrow. 5. Tobacco abuse disorder. Smoking cessation counseling given. Healthy lifestyle measures discusse d with the patient. 6. Rheumatoid arthritis. We will continue sulfasalazine 1500 mg twice daily. 7. History of distal esophagitis. We will continue Protonix 40 mg p.o. daily. 8. Anxiety and depression. We will continue Cymbalta 60 mg p.o. daily. 9. Moderate protein-calorie malnutrition. Patient will be given nutritional supplement with Ensure while in hospital. We are trying to figure it out the reason for his weight loss or anorexia. 10. Anemia, normocytic, normochromic. Upon discharge, we will consider giving him ferrous sulfate, folic acid, vitamin B12 therapy. 11. Deep vein thrombosis prophylaxis not needed, because we are expecting discharge in 24 hours. 12. Gastrointestinal prophylaxis, Protonix 40 mg p.o. daily. CODE STATUS: The patient is FULL CODE. The patient is making his decision by himself. Disposition and plan based on clinical course. Plan of care discussed with the patient and family me mariscal at bedside in the emergency room.
[2017-07-05] MEDS ORDERED: Diphenoxylate HCl/Atropine Tablet PO PRN (17:59)
[2017-07-05] MEDS ORDERED: Ondansetron ODT 4 MG TAB PO PRN (17:59)
[2017-07-05] MEDS ORDERED: Loratadine 10 MG TAB PO PRN (17:59)
[2017-07-05] MEDS ORDERED: Artificial Tears 18 DROP/0.9 ML EA EYE PRN (17:59)
[2017-07-05] MEDS ORDERED: Mag-Al 1200 mg/1200 mg/30 ML UDCUP PO PRN (17:59)
[2017-07-05] MEDS ORDERED: Diabetic Tussin 200 MG/10 ML UDCUP PO PRN (17:59)
[2017-07-05] MEDS ORDERED: Eucerin (Mineral Oil/Petrolatum,White) 30 gm Jar TOP PRN (17:59)
[2017-07-05] MEDS ORDERED: Sodium Chloride 0.65% Nasal 44 ML BOT EA NARE PRN (17:59)
[2017-07-05] MEDS ORDERED: Acetaminophen 325 MG TAB PO PRN (17:59)
[2017-07-05] MEDS ORDERED: hydrALAZINE 20 MG/ML VIAL SLOW IVP PRN (17:59)
[2017-07-05] MEDS ORDERED: Chloraseptic Spray 180 ml Bottle PO PRN (17:59)
[2017-07-05] MEDS ORDERED: Zolpidem Tartrate 5 MG TAB PO PRN (17:59)
[2017-07-05] MEDS ORDERED: Loperamide HCl 2 MG CAP PO PRN (17:59)
[2017-07-05] MEDS ORDERED: Ondansetron HCl/PF 4 MG/2 ML Vial IVP PRN (17:59)
[2017-07-05] MEDS ORDERED: GoLYTELY 4,000 ml Bottle PO SCH ×2 (19:30)
[2017-07-05] MEDS: sulfaSALAzine 500 MG TAB PO SCH (19:52)
[2017-07-05] MEDS: NS 0.9% w/ 20 MEQ KCL 1,000 ML/1,000 ML BAG IV SCH (20:53)
[2017-07-05 23:50] LABS: Bilirubin Small (Negative); Blood, Urine Negative (Negative); Glucose, Urine (Dipstick) Negative (Negative); Ketone, Urine 40 mg/dL (Negative); Nitrite Negative (Negative); Protein, Urine (Dipstick) Trace mg/dL (Neg-Trace); Urobilinogen 0.2 mg/dL (0.2-1.0)
[2017-07-05 23:51] LABS: Bacteria/HPF None Seen HPF (None Seen); Hyaline Casts/LPF 0-3 HYALINE CAST LPF (0-3 Hyaline); Squamous Epithelial 0-3 HPF (0-3)
[2017-07-06] MEDS: NS 0.9% w/ 20 MEQ KCL 1,000 ML/1,000 ML BAG IV SCH ×2 (03:45→21:00)
[2017-07-06 05:24] LABS: Anion Gap 11 mmol/L (10-20); BUN (Urea Nitrogen) 13 mg/dL (8.4-25.7); Calc. Creatinine Clearance 76 mL/min (70-130); Calcium 8.4 mg/dL (7.8-10.44); Carbon Dioxide 28 mmol/L (23-31); Chloride 106 mmol/L (98-107); Estimated GFR-MDRD Greater than 90; Iron 12 ug/dL (65-175)
[2017-07-06 05:47] LABS: #Basophils 0.1 thou/uL (0.0-0.2); #Eosinphils 0.2 thou/uL (0.0-0.7); #Lymphocytes 2.2 thou/uL (1.20-3.40); #Neutrophils 3.4 thou/uL (1.40-6.50); %Basophils 1.3 % (0.0-1.0); %Eosinophils 2.4 % (0.0-10.0); %Lymphocytes 32.4 % (21.0-51.0); %Monocytes 14.4 % (0.0-10.0); Anisocytosis SLIGHT = 6-15 cells (100X) (0-5/hpf); Hematocrit 26.2 % (42.0-52.0); Polychromasia SLIGHT = 2-3 cells (100X) (0-2/hpf); Red Blood Cell (RBC) Count 3.12 mill/uL (4.70-6.10); White Blood Cell (WBC) Count 6.8 thou/uL (4.8-10.8)
--- NOTE | 2017-07-06 06:37 | CON ---
DATE OF CONSULTATION: 07/05/2017 HISTORY OF PRESENT ILLNESS: Mr. Real is seen today in clinic with Dr. Jose Hyatt, who is his prim zafar gastrologist and with the ongoing diarrhea and some hypertension it was felt that he was not doin g well in the outpatient setting, was sent to the emergency room, and from there he has been admitted . The plan is for him to get an upper and lower endoscopy. The patient was in the hospital several weeks ago when he came with acute upper gastrointestinal bleed. Dr. 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 There were a few nonbleeding AVM, there is circumferential ulcer at the apex of the duodenal bulb. It was felt there has already been NSAID use including BC powders and also prednisone. He was started on iron and PPIs; however, he was back in the hospital again on the with epigastric vani n and vomiting after eating barbecue sandwich. At that time, a CAT scan showed fecalization of renetta nt in the terminal ileum and cecum, which was felt to be nonspecific, but positive. There was some i leitis or inflammatory process. In the hospital, he did get GoLYTELY, which clean him out, however, during the hospitalization, he had leukocytosis was empirically placed on Zosyn. Surgery saw him and did not feel there is any acute issues, and then he was seen by Infectious Disease who felt possibly he could have an intestinal obstruction and therefore GI was reconsulted, and that was on 06/28/2017 . At that time other than the fecalization in the distal ileum, there was no proximal dilatation. T his CAT scan also showed abdominal aortic aneurysm within the aortoiliac graft. They were planning o n setting up a colonoscopy at that time to make sure not have any signs of Crohn's disease; however, the patient wanted to go home and is to follow up with Dr. Hyatt in the outpatient wanted to wait unti l then to set up a colonoscopy. The plan was that time to set up outpatient colonoscopy and a repeat EGD to evaluate his ulcers; however, the patient presented to the office today with the above noted complaints. Essentially, he was having diarrhea and just feeling weak and did not feel he could make it to an outpatient procedure. Apparently, he has had some issues with urinary retention recently a nd had a Tripp catheter placed in the outpatient setting. For the past couple of weeks, he has not b een eating or drinking very well. He does have intermittent abdominal pain, loss of appetite, diarrh ea. REVIEW OF SYSTEMS: Poor appetite, poor p.o. intake, weight loss, but he is not able to characterize that. There is intermittent arthritis flareup. He has been off these medicines for some time. PAST MEDICAL HISTORY: Peripheral vascular disease with previous stent placement, rheumatoid arthriti s, hypertension, dyslipidemia, reflux, peptic ulcer disease, prior esophagitis, recent endoscopy, an xiety and depression. PAST SURGICAL HISTORY: Peripheral vascular stenting upper endoscopy, distal esophagitis and circumfe rential duodenal ulcer in distant May. ALLERGIES: None known. HOME MEDICATIONS: Cymbalta, Omeprazole, sulfasalazine for his rheumatoid arthritis and tramadol. SOCIAL HISTORY: Patient lives by himself in [place], [place]. Sister lives in [place]. Son live s in [place]. He smokes a pack and half a day still, does not drink. FAMILY HISTORY: Otherwise, noncontributory. PHYSICAL EXAMINATION: GENERAL: Afebrile, temperature is 97.4, pulse 85, blood pressure 138/74. He is frail and appears ch ronically ill. HEENT: Within normal limits. Conjunctivae and sclerae are clear. No oral lesions or ulcers. NECK: Supple without adenopathy. LUNGS: Clear. HEART: Regular rate and rhythm. ABDOMEN: Soft, nontender. There is no rebound or guarding. There is inguinal hernias bilaterally h ydrocele apparently on both sides of the catheter in place. SKIN: Without rashes. LABORATORY STUDIES: White count 9.9, hemoglobin 10, platelet count 516, this is up from 416 on 07/02, and 275 on 06/28/2017. Sodium 136, potassium 3.2, BUN and creatinine are 16 and 0.95. AST 42 , ALT 30. Liver function tests otherwise normal. Albumin is 3.5, lipase is 60, lactic acid is 1.5. H. pylori was negative on 06/19/2017, influenza studies negative A and B until today. ASSESSMENT: 1. Chronic GI issues with nausea, vomiting, poor p.o. intake, large duodenal ulcer noted about a wed ago, this was circumferential, was felt to be NSAID related. No biopsies were taken at that time and has been treated, there has been slight improvement in the patient's hemoglobin over that time, a s low as 7.7 and as high as 10. 2. Diarrhea. This does seems to be more actually a chronic issue, admitting physician notes it is a cute in the H&P documents, but the patient also tells me it has been going on for several months. Th ere have been some changes of ileitis on his CAT scan with some fecalization intermittent elevation o f a platelet count and a history of arthritis, I think probably need to rule out inflammatory bowel d isease with ileoscopy underlying tumor will be a consideration as well, ischemia would be less likely . These were all Dr. Hyatt's plan and we can go ahead and proceed for EGD and colonoscopy tomorrow to document healing of the ulcer from above and find out what is going on with the diarrhea, no bowel c hanges bloated. We will also go ahead and get stool for Clostridium difficile at this time, he has b een in and out of the hospital several times. 3. Urinary retention with bladder dilations likely related to prostatomegaly. 4. Hydrocele inguinal hernias with no evidence of bowel obstruction with regards to this. 5. Chronic normocytic normochromic anemia related to his rheumatoid arthritis, could be related to i nflammatory bowel disease. PLAN: Upper and lower endoscopy tomorrow, electrolyte replacement, and PPI therapy.
[2017-07-06] MEDS: Pantoprazole 40 MG VIAL IVP SCH (07:51)
[2017-07-06] MEDS: Saccharomyces boulardii 250 MG CAP PO SCH (07:52)
--- NOTE | 2017-07-06 10:18 | PDOC.PN ---
- Subjective Encounter Start Date: 07/06/17 Encounter Start Time: 07:10 -: old records requested/rev Patient seen and examined. No new complaints. No overnight events - Objective Resuscitation Status: Resuscitation Status FULL:Full Resuscitation MAR Reviewed: Yes Vital Signs & Weight: Vital Signs (12 hours) Temp Pulse Resp BP BP Pulse Ox 07/06/17 07:58 98.0 F 72 18 07/06/17 07:55 98.4 F 76 16 139/67 100 07/06/17 02:51 98.0 F 72 18 124/62 100 07/06/17 00:17 97.8 F 72 18 140/73 100 Weight Weight 122 lb 14.4 oz I&O: 07/05/17 07/06/17 07/07/17 06:59 06:59 06:59 Intake Total 4400 10 Output Total 1650 Balance 2750 10 Result Diagrams: 07/06/17 04:41 07/06/17 04:41 Phys Exam - Physical Examination Constitutional: NAD HEENT: PERRLA, moist MMs, sclera anicteric Neck: no JVD, supple Respiratory: no wheezing, no rales, no rhonchi Cardiovascular: RRR, no significant murmur, no rub Gastrointestinal: soft, non-tender, no distention, positive bowel sounds mireles+, hydrocele, hernia+ Musculoskeletal: no edema, pulses present Neurological: non-focal, normal sensation, moves all 4 limbs Psychiatric: normal affect, A&O x 3 Skin: no rash, normal turgor Dx/Plan (1) Urinary retention due to benign prostatic hyperplasia Code(s): N40.1 - BENIGN PROSTATIC HYPERPLASIA WITH LOWER URINARY TRACT SYMP; R33.8 - OTHER RETENTION OF URINE Status: Acute (2) Anemia, normocytic normochromic Code(s): D64.9 - ANEMIA, UNSPECIFIED Status: Chronic (3) Anxiety and depression Code(s): F41.8 - OTHER SPECIFIED ANXIETY DISORDERS Status: Chronic (4) Chronic diarrhea Code(s): K52.9 - NONINFECTIVE GASTROENTERITIS AND COLITIS, UNSPECIFIED Status : Chronic (5) Essential (primary) hypertension Code(s): I10 - ESSENTIAL (PRIMARY) HYPERTENSION Status: Chronic (6) Hydrocele, bilateral Code(s): N43.3 - HYDROCELE, UNSPECIFIED Status: Chronic (7) Inguinal hernia Code(s): K40.90 - UNIL INGUINAL HERNIA, W/O OBST OR GANGR, NOT SPCF RECUR Status: Chronic (8) PAD (peripheral artery disease) Code(s): I73.9 - PERIPHERAL VASCULAR DISEASE, UNSPECIFIED Status: Chronic Comment: prior aortoiliac graft (9) PUD (peptic ulcer disease) Code(s): K27.9 - PEPTIC ULC, SITE UNSP, UNSP AC OR CHR, W/O HEMOR OR PERF Status: Chronic (10) Protein-calorie malnutrition, moderate Code(s): E44.0 - MODERATE PROTEIN-CALORIE MALNUTRITION Status: Chronic (11) Rheumatoid arthritis Code(s): M06.9 - RHEUMATOID ARTHRITIS, UNSPECIFIED Status: Chronic Qualifiers: (12) Tobacco abuse Code(s): Z72.0 - TOBACCO USE Status: Chronic - Plan cont current plan of care, plan discussed w/ family * today EGD for follow up on PUD * colonoscopy for chronic diarrhoea evaluation * urology for urinary retention * outpt surgery follow up for hernia * medication reviewed as below * symptomatic treatment. Review of Systems - Review of Systems Constitutional: negative: Fever, Chills, Sweats, Weakness, Malaise, Other ENT: negative: Ear Pain, Ear Discharge, Nose Pain, Nose Discharge, Nose Congestion, Mouth Pain, Mouth Swelling, Throat Pain, Throat Swelling, Other Respiratory: negative: Cough, Dry, Shortness of Breath, Hemoptysis, SOB with Excertion, Pleuritic Pain, Sputum, Wheezing Cardiovascular: negative: Chest Pain, Palpitations, Orthopnea, Paroxysmal Noc. Dyspnea, Edema, Light Headedness, Other Gastrointestinal: Diarrhea. negative: Nausea, Vomiting, Abdominal Pain, Constipation, Melena, Hematochezia, Other Genitourinary: Retention. negative: Dysuria, Frequency, Incontinence, Hematuria , Other Musculoskeletal: negative: Neck Pain, Shoulder Pain, Arm Pain, Back Pain, Hand Pain, Leg Pain, Foot Pain, Other Skin: negative: Rash, Lesions, Casey, Bruising, Other - Medications/Allergies Allergies/Adverse Reactions: Allergies Allergy/AdvReac Type Severity Reaction Status Date / Time No Known Drug Allergies Allergy Verified 06/18/17 01:10 Medications: Current Medications Acetaminophen (Tylenol) 650 mg PO Q4H PRN PRN Reason: Headache/Fever or Pain Hydrocodone Bitart/Acetaminophen ([place] 5/325) 1 tab PO Q4H PRN PRN Reason: Moderate Pain (4-6) Al Hydroxide/Mg Hydroxide (Maalox) 30 ml PO Q6H PRN PRN Reason: Heartburn or Indigestion Artificial Tears (Tears Naturale) 0 drop EA EYE PRN PRN PRN Reason: Dry Eyes Diphenoxylate HCl/Atropine (Lomotil) 1 tab PO QIDPRN PRN PRN Reason: Diarrhea/Loose Stools Duloxetine HCl (Cymbalta) 60 mg PO DAILY [facility] Last Admin: 07/06/17 07:52 Dose: 60 mg Guaifenesin (Robitussin Sf) 200 mg PO Q4H PRN PRN Reason: Cough Hydralazine HCl (Apresoline) 10 mg SLOW IVP Q4H PRN PRN Reason: Systolic BP > 180 Potassium Chloride/Sodium Chloride (Ns 0.9% W/ 20 Meq Kcl) 1,000 ml in 1,000 mls @ 125 mls/hr IV .Q8H [facility] Last Admin: 07/06/17 03:45 Dose: 1,000 mls Loperamide HCl (Imodium) 2 mg PO PRN PRN PRN Reason: Diarrhea/Loose Stools Loratadine (Claritin) 10 mg PO DAILYPRN PRN PRN Reason: Sinus Symptoms Mineral Oil/White Petrolatum (Eucerin Cream) 0 gm TOP BIDPRN PRN PRN Reason: Dry Skin Ondansetron HCl (Zofran Odt) 4 mg PO Q6H PRN PRN Reason: Nausea/Vomiting Ondansetron HCl (Zofran) 4 mg IVP Q6H PRN PRN Reason: Nausea/Vomiting Pantoprazole Sodium (Protonix) 40 mg IVP DAILY [facility] Last Admin: 07/06/17 07:51 Dose: 40 mg Phenol (Chloraseptic Arnold 180 Ml Bot) 0 ml PO PRN PRN PRN Reason: Sore Throat Saccharomyces Boulardii (Florastor) 250 mg PO DAILY [facility] Last Admin: 07/06/17 07:52 Dose: 250 mg Sodium Chloride ([place] Nasal Arnold 0.65%) 0 ml EA NARE QIDPRN PRN PRN Reason: Nasal Congestion Sodium Chloride (Flush - Normal Saline) 10 ml IVF PRN PRN PRN Reason: Saline Flush Sodium Chloride (Flush - Normal Saline) 10 ml IVF DAILY [facility] Last Admin: 07/06/17 07:53 Dose: 10 ml Sulfasalazine (Azulfidine) 1,500 mg PO BID [facility] Last Admin: 07/05/17 19:52 Dose: Not Given Zolpidem Tartrate (Ambien) 5 mg PO HSPRN PRN PRN Reason: Insomnia
[2017-07-06] MEDS: sulfaSALAzine 500 MG TAB PO SCH ×2 (10:49→21:36)
[2017-07-06 12:03] VITALS: BMI 17.6
[2017-07-06] MEDS: Tamsulosin HCl 0.4 MG CAP PO SCH ×2 (14:05→18:01)
[2017-07-06] MEDS ORDERED: Lidocaine 1% PF 5 ML VIAL ONE (16:03)
[2017-07-06] MEDS ORDERED: Propofol 200 MG/20 ML VIAL ONE (16:03)
--- NOTE | 2017-07-06 19:39 | OP ---
DATE OF PROCEDURE: 07/06/2017 SURGEON: Jose Hyatt M.D. [employer] SURGEON: None. PROCEDURES: 1. EGD with biopsies. 2. Colonoscopy with biopsies. INDICATIONS: 1. Nausea and vomiting. 2. Chronic diarrhea. 3. Weight loss. 4. Recent abnormal CT scan showing possible terminal ileal inflammation. MEDICATIONS: See anesthesia record. FINDINGS: After discussion of the risks, benefits and alternatives of the procedure, informed consen t was obtained and witnessed. Pre-endoscopic cardiopulmonary examination was satisfactory. Timeout was performed before sedation was achieved. Sedation was achieved with anesthesia assistance in the endoscopy unit. A Pentax adult upper endoscope was placed into the oropharynx and passed through the cricopharyngeus under direct visualization. The esophageal mucosa appears normal in the proximal an d mid esophagus. In the distal esophagus, there is a 5 cm segment from 35-40 cm, salmon-colored muco sa. The Z-line is irregular and is at 35 cm, with the top of the gastric folds at 40 cm. This is ferguson spicious for Aguilar's esophagus. Biopsies were obtained from this area of the mucosa to rule out Ba rrett's esophagus. The endoscope was advanced through the GE junction and into the stomach. Forward and retroflexed views of the entire gastric mucosa were obtained. The gastric mucosa appears normal . The endoscope was advanced through the pylorus and into the first and second portions of the duode num. In the duodenal bulb at the apex, there is significant edema and erythema with friability, thou gh the previously visualized ulceration appears to have healed. The upper endoscope was then complet okbi withdrawn and the patient was repositioned. Digital rectal exam was performed which demonstrated some irregularity along the right rectal wall. External rectal exam showed some external hemorrhoids, which were nonbleeding. A Pentax adult colono scope was then inserted into the anus. The patient has a large necrotic ulcer in the distal rectum a longside the right wall of the rectum and it did anteriorly. This ulcer encompasses about a third of the circumference of the rectum. It is quite deep with necrotic appearing base though no bleeding. The edges of the ulcer are not heaped-up. Biopsies were obtained from the ulcer edge for histology. Consider neoplastic process versus ischemia versus NSAID injury versus less likely inflammatory bow el disease. The endoscope was then passed into the proximal colon until the cecum was reached. The cecal base was identified by the appendiceal orifice as well as the ileocecal valve. The terminal il eum was intubated and the ileum was examined to 20 cm. The ileal mucosa appeared normal throughout. The scope was then slowly withdrawn in a gradual and circumferential manner with careful examination of the entire colonic mucosa. The quality of the prep was good. There were no other abnormalities throughout the entirety of the colon except for the large distal rectal ulcer. The colonoscope was t hen completely withdrawn and the patient allowed to recover. The patient tolerated the procedure wel l. There were no immediate post-procedure complications. IMPRESSION: 1. A large necrotic ulcer in the distal rectum, encompassing about a third of the circumference of t he distal rectum. Edges are not heaped-up. Biopsied. Consider neoplastic process versus ischemia v ersus nonsteroidal anti-inflammatory drug injury versus less likely inflammatory bowel disease. 2. Otherwise, normal colonoscopy to the terminal ileum. 3. Duodenitis in the duodenal bulb, with apparent healing of previously visualized duodenal bulb ulc er. 4. A 5 cm segment of salmon-colored mucosa in the distal esophagus, biopsied to rule out Aguilar's e sophagus. RECOMMENDATIONS: 1. Advance diet. 2. Daily proton pump inhibitor. 3. Follow up pathology on the rectal ulcer biopsies as well as the esophageal biopsies. 4. Avoid nonsteroidal anti-inflammatory drugs. 5. If the rectal ulcer biopsies come back showing ischemic changes, consult were refer to Vascular S urgery. Note, the patient has a history of peripheral vascular disease with stent placement. Naomi barry this was an aortobiiliac bypass.
[2017-07-06] MEDS ORDERED: Tamsulosin HCl 0.4 MG CAP PO SCH (21:00)
[2017-07-06] MEDS: HYDROcodone/Acetaminophen 5/325 mg Tablet PO PRN (21:10)
[2017-07-07] MEDS: HYDROcodone/Acetaminophen 5/325 mg Tablet PO PRN (04:21)
[2017-07-07] MEDS: NS 0.9% w/ 20 MEQ KCL 1,000 ML/1,000 ML BAG IV SCH (04:23)
[2017-07-07] MEDS: sulfaSALAzine 500 MG TAB PO SCH (08:24)
[2017-07-07] MEDS: Pantoprazole 40 MG VIAL IVP SCH (08:24)
[2017-07-07] MEDS: Saccharomyces boulardii 250 MG CAP PO SCH (08:24)
[2017-07-07 08:36] VITALS: BP 154/75; TEMP 98
--- NOTE | 2017-07-07 11:43 | DIS ---
DATE OF ADMISSION: 07/05/2017 DATE OF DISCHARGE: 07/07/2017 PRIMARY CARE PHYSICIAN: [facility] call admission. DISCHARGE DISPOSITION: Home. PRIMARY DISCHARGE DIAGNOSES: 1. Chronic diarrhea due to rectal ulcer. 2. Urinary retention with bladder dilatation due to benign enlargement of prostate. 3. Bilateral hydrocele likely due to underlying inguinal hernia. 4. Urinary tract infection due to Enterococcus. 5. Hypokalemia, corrected. 6. Moderate protein calorie malnutrition. SECONDARY DISCHARGE DIAGNOSES: 1. Normocytic normochromic anemia. 2. Anxiety and depression. 3. History of peptic ulcer disease. 4. Rheumatoid arthritis. 5. Tobacco abuse disorder. 6. Peripheral vascular disease. 7. Hypertension. 8. Dyslipidemia. 9. Gastroesophageal reflux disease. PRIMARY PROCEDURE/OPERATION: The patient had upper endoscopy, which showed healing duodenal bulb ulc er. Colonoscopy showed rectal necrotic ulcer, which was biopsied. TEST RESULTS PENDING ON DISCHARGE: Pathology report of distal esophagus and rectum. SIGNIFICANT LABORATORY DATA: WBC 6.8, hemoglobin 8.4, platelets 377. Sodium 141, creatinine 0.76. Ferritin 77.71, prostate specific antigen 14.6. Urinalysis suggestive of UTI. Urine culture grew En terococcus, C. diff negative, influenza negative. DISCHARGE MEDICATIONS: Cipro 500 mg p.o. b.i.d. for 7 days, Lomotil 1 capsule p.o. q.i.d. p.r.n., Cy mbalta 60 mg p.o. daily, omeprazole 20 mg p.o. daily, Florastor 250 mg p.o. daily for 7 days, sulfasa lazine 1500 mg p.o. b.i.d., Flomax 0.4 mg p.o. daily, tramadol 50 mg t.i.d. p.r.n. CONTRAINDICATIONS: None. CODE STATUS: FULL CODE. INPATIENT CONSULTANTS: Dr. Hyatt and Dr. Lira saw this patient. DISCHARGE PLAN: Post hospital, the patient is instructed to follow up with Urology, gastroenterologi st and primary care physician. HOSPITAL COURSE: A 71-year-old male who was admitted from GI clinic, because the patient was having diarrhea and he was feeling weak. He was relatively hypotensive. During this admission, GI did uppe r endoscopy and it was showing improvement in his previous peptic ulcer disease and he was diagnosed with a new necrotic rectal ulcer. Biopsy was obtained. Pathology report is pending. They also obta in biopsy from the distal esophagus to rule out Aguilar's esophagus. C. diff was negative. We presc ribed Lomotil to use on a p.r.n. basis for diarrhea. Recently, this patient also had urinary retention, but he was not on Flomax and that is why we starte d Flomax medication in this admission. His urine culture grew Enterococcus and that is why we starte d Cipro on discharge. The rest of medication was continued upon discharge. He has failure to thrive and that is why nutritional support was given and advised. This patient is given instructions to avoid NSAIDs. The patient is seen and examined at bedside today and there is no change in his physical examination. His review of systems is negative. Plan of care discussed with the family member. The patient is medically stable for discharge today. All new medication prescriptions sent to his pharmacy.
== END 2017-07-07 12:11 | disposition home or self-care (01) ==
LOC: ERS 11:30 → ONC 14:34
PROVIDERS: ADMIT Internal Medicine; ATTEND Internal Medicine
PROC: 0DBP8ZX Excision of Rectum, Via Natural or Artificial Opening Endoscopic, Diagnostic (ICD-10-PCS; principal; 2017-07-05)
PROC: 0DB58ZX Excision of Esophagus, Via Natural or Artificial Opening Endoscopic, Diagnostic (ICD-10-PCS; 2017-07-05)
DX: K52.9 Noninfective gastroenteritis and colitis, unspecified (principal); R11.2 Nausea with vomiting, unspecified; K62.6 Ulcer of anus and rectum; K64.4 Residual hemorrhoidal skin tags; K29.80 Duodenitis without bleeding; N40.1 Benign prostatic hyperplasia with lower urinary tract symptoms; R33.8 Other retention of urine; N43.3 Hydrocele, unspecified; K40.90 Unilateral inguinal hernia, without obstruction or gangrene, not specified as recurrent; N39.0 Urinary tract infection, site not specified; B95.2 Enterococcus as the cause of diseases classified elsewhere; E87.6 Hypokalemia; E44.0 Moderate protein-calorie malnutrition; D64.9 Anemia, unspecified; F41.8 Other specified anxiety disorders; M06.9 Rheumatoid arthritis, unspecified; I73.9 Peripheral vascular disease, unspecified; E78.5 Hyperlipidemia, unspecified; K21.9 Gastro-esophageal reflux disease without esophagitis; I10 Essential (primary) hypertension; F17.210 Nicotine dependence, cigarettes, uncomplicated; Z68.1 Body mass index [BMI] 19.9 or less, adult; Z79.899 Other long term (current) drug therapy; Z95.818 Presence of other cardiac implants and grafts; Z98.890 Other specified postprocedural states; Z87.11 Personal history of peptic ulcer disease; Z86.19 Personal history of other infectious and parasitic diseases
CPT/HCPCS: 45380; 43239; 74000; 80048; 80053; 81001; 82550; 82553; 82607; 82728; 82746; 83540; 83550; 83605; 83690; 83735; 84100; 84153; 84484; 85025 ×2; 87077; 87086; 87186; 87324; 87449; 87804 ×2; 88305; 88312; 88313; 93005; 96361 ×4; 96374; 96376; 99285; G0378; 36415; 96360; A4216; C9113; J2001; J2704

== ENCOUNTER 2017-07-20 13:28 | Emergency (ER) | payer MEDICARE, OTHER ==
[2017-07-20 14:01] LABS: Hematocrit 32.9 % (42.0-52.0); Mean Platelet Volume 9.3 fL (7.4-10.4); Red Blood Cell (RBC) Count 4.05 mill/uL (4.70-6.10); White Blood Cell (WBC) Count 5.8 thou/uL (4.8-10.8)
[2017-07-20 14:18] LABS: Anisocytosis SLIGHT = 6-15 cells (100X) (0-5/hpf); Band 4 % (5-11); Hypochromia SLIGHT = 6-15 cells (100X) (0-5/hpf); Neutrophil 66 % (42-75)
[2017-07-20 14:23] LABS: ALT (SGPT) 14 U/L (8-55); AST (SGOT) 32 U/L (5-34); Alkaline Phosphatase 109 U/L (40-150); Anion Gap 14 mmol/L (10-20); BUN (Urea Nitrogen) 11 mg/dL (8.4-25.7); Bilirubin, Total 0.3 mg/dL (0.2-1.2); CK (CPK) 31 U/L (30-200); Calc. Creatinine Clearance 0 mL/min (70-130); Calcium 9.1 mg/dL (7.8-10.44); Carbon Dioxide 27 mmol/L (23-31); Chloride 100 mmol/L (98-107); Estimated GFR-MDRD 81; Globulin 2.9 g/dL (2.4-3.5); Protein, Total 6.7 g/dL (5.8-8.1)
--- NOTE | 2017-07-20 14:25 | RAD ---
CHEST ONE VIEW: History: Weakness. Comparison: 06-26-17 FINDINGS: Slight elongation of the aorta. Normal cardiac silhouette. The pulmonary vessels and hilum are normal . Costophrenic angles are clear. Hyperinflation with chronic change. No consolidation or mass. No pne umothorax or osseous abnormalities. Endovascular stent is noted. IMPRESSION: 1. Hyperinflation. 2. Chronic changes. POS: MADELINE
[2017-07-20 14:29] LABS: Troponin I Less than 0.010 ng/mL (< 0.028)
[2017-07-20 14:31] LABS: Bilirubin Negative (Negative); Blood, Urine Small (Negative); Glucose, Urine (Dipstick) Negative (Negative); Ketone, Urine Negative (Negative); Nitrite Negative (Negative); Protein, Urine (Dipstick) Trace mg/dL (Neg-Trace); Urobilinogen 0.2 mg/dL (0.2-1.0)
[2017-07-20 14:34] LABS: Bacteria/HPF None Seen HPF (None Seen); Hyaline Casts/LPF 4-6 HYALINE CAST LPF (0-3 Hyaline); RBC/HPF 0-3 HPF (0-3); Squamous Epithelial None Seen HPF (0-3)
== END 2017-07-20 17:41 | disposition home or self-care (01) ==
LOC: ERS 13:28
DX: E86.0 Dehydration (principal); M06.9 Rheumatoid arthritis, unspecified; E78.00 Pure hypercholesterolemia, unspecified; I10 Essential (primary) hypertension; F17.210 Nicotine dependence, cigarettes, uncomplicated
CPT/HCPCS: 71010; 80053; 81003; 81015; 82553; 84484; 85025; 87077; 87086; 87186; 93005; 94760; 96360; 96361; 99406